=== PATIENT | female | born 1980 | race Caucasian/White ===

== ENCOUNTER 2023-04-07 10:03 | Outpatient (OUT) | payer BC, SELFPAY ==
--- NOTE | 2023-04-07 10:07 | MM_ITS ---
Patient Name: BRIANNA GRUBER MR#: [id number] : 1980 Exam Date: 04/07/2023 Ordering Doctor: DR Danitza Beck M.D. RADIOLOGY REPORT PROCEDURE: MM TOMOSYNTHESIS SCREENING BI COMPARISON: MG MAMM SCREEN 3D [facility] CAD, 01/18/2022. MG MAMM SCREEN 3D [facility] CAD, 11/12/2020. INDICATIONS: screening Calculator Name NCI Breast Cancer Risk Assessment Tool 5 Year Breast Cancer Risk 0.60% Lifetime Breast Cancer Risk 8.80% Personal Breast Cancer No Personal Ovarian Cancer No Treatments None Family Cancers None LOCATION: [facility] BREAST COMPOSITION: Scattered areas fibroglandular density. FINDINGS: DIAGNOSTIC CATEGORY 2--BENIGN FINDING: RIGHT BREAST: No significant suspicious finding. This exam includes additional mammographic views for implant evaluation and shows no visible implant abnormality. No significant change has occurred. LEFT BREAST: No significant suspicious finding. This exam includes additional mammographic views for implant evaluation and shows no visible implant abnormality. No significant change has occurred. RECOMMENDATIONS: ROUTINE MAMMOGRAM AND CLINICAL EVALUATION IN 12 MONTHS. PLEASE NOTE: A NORMAL MAMMOGRAM DOES NOT EXCLUDE THE POSSIBILITY OF BREAST CANCER. A CLINICALLY SUSPICIOUS PALPABLE LUMP SHOULD BE BIOPSIED. Dictated by: James Frost M.D. on 04/07/2023 at 15:29 Approved by: James Frost M.D. on 04/07/2023 at 15:31
== END 2023-04-07 10:04 | disposition home or self-care (01) ==
LOC: MAMMO 10:03
PROVIDERS: PCP Family Medicine; Visit Provider Family Medicine
DX: Z12.31 Encounter for screening mammogram for malignant neoplasm of breast (principal)
CPT/HCPCS: 77063; 77067

== ENCOUNTER 2024-06-05 22:05 | Outpatient (REF) | payer BC, SELFPAY ==
--- OUTSIDE RECORDS SUMMARY | 2024-06-05 22:08 | XMS_ITS | CCD ---
Author Organization [facility] Care Team Providers Care Carton Inspector Name Role Phone RAJAB, AMER Unavailable Unavailable SELF, SELF Unavailable Unavailable PULIDO, EDGARD Unavailable Unavailable PESAVENTO, HUMBLE Unavailable Unavailable SELF, SELF Unavailable Unavailable PULIDO, EDGARD Unavailable Unavailable RAJAB, AMER Unavailable Unavailable RAJAB, AMER Unavailable Unavailable PULIDO, EDGARD Unavailable Unavailable RAJAB, AMER Unavailable Unavailable PESAVENTO, HUMBLE Unavailable Unavailable PULIDO, EDGARD Unavailable Unavailable KARASIK, DR CLARK Admitting Unavailable PULIDO, DR EDGARD Shaikh Primary Care Unavailable KARASIK, DR CLARK Attending Unavailable KARASIK, DR CLARK Consulting Unavailable WEST, DR ANANTH Guerra Consulting Unavailable PULIDO, DR EDGARD Shaikh Primary Care Unavailable KARASIK, DR CLARK Attending Unavailable KARASIK, DR CLARK Consulting Unavailable KARASIK, DR CLARK Admitting Unavailable PULIDO, DR EDGARD Shaikh Attending Unavailable PULIDO, DR EDGARD Shaikh Consulting Unavailable PULIDO, DR EDGARD Shaikh Primary Care Unavailable PULIDO, DR EDGARD Shaikh Admitting Unavailable Thais Guadarrama Unavailable Medications Current Medications Medication Drug Class(es) Dates Sig (Normalized) Sig (Original) amoxicillin 875 mg / clavulanate 125 mg oral tablet (1 source) Penicillin-class Antibacterial Start: 04-01-2022 take 1 tablet by mouth every twelve hours Amoxicillin-Pot Clavulanate 875-125 MG 1 tablet Orally every 12 hrs for 10 day(s) Mar, Active Problems Active Problems Problem Classification Problem Date Documented Date Episodic/Chronic Immunizations and screening for infectious disease (1 source) Encounter for screening for human papillomavirus (HPV); Translations: [ENC SCREENING HUMAN PAPILLOMAVIRUS] Onset: 11-13-2021 Episodic Other screening for suspected conditions (not mental disorders or infectious disease) (8 sources) Encounter for screening mammogram for malignant neoplasm of breast; Translations: [Encounter for screening for malignant neoplasm of cervix] Onset: 11-10-2021 Episodic Other upper respiratory infections (1 source) Acute sinusitis, unspecified Episodic Unclassified (1 source) Kidney donor / Z52.4(ICD-10) Onset: 07-17-2017 Past or Other Problems Problem Classification Problem Date Documented Da te Episodic/Chronic Unclassified (1 source) Kidney donor; Translations: [Kidney donor] Onset: 07-17-2017 Unclassified (1 source) Cough, unspecified type R05.9 Results Test Name Value Interpretation Reference Range Facility Quick Fluon 04-01-2022 FLUAV Ab CF (S) [Titer] Negative QoL Meds Other FLUBV Ab CF (S) [Titer] Negative QoL Meds Other MG MAMM SCREEN 3D HALEY CADon 01-18-2022 MG MAMM SCREEN 3D HALEY CAD Patient: BRIANNA GRUBER Exam Date: 01/18/2022 : 1980 Gender:F Ordering : DR EDUARDO BRIDGES . Admission #: [id number] Family : Order #: [id number] CLICK HERE TO VIEW EXAM RADIOLOGY REPORT PROCEDURE: MAMMOGRAM SCREENING 3D BILATERAL CAD COMPARISON: MG MAMM SCREEN 3D HALEY CAD, 2020. INDICATIONS: Screening mammography Calculator Name NCI Breast Cancer Risk Assessment Tool 5 Year Breast Cancer Risk 0.60% Lifetime Breast Cancer Risk 8.90% Personal Breast Cancer No Personal Ovarian Cancer No Treatments None Family Cancers None LOCATION: [facility] BREAST COMPOSITION: Scattered areas fibroglandular density. FINDINGS: DIAGNOSTIC CATEGORY 1--NEGATIVE. NO CHANGE FROM COMPARISON ASSESSMENT. This exam includes additional mammographic views for implant evaluation and shows no visible implant abnormality. RIGHT BREAST: No significant suspicious finding. LEFT BREAST: No significant suspicious finding. RECOMMENDATIONS: ROUTINE MAMMOGRAM AND CLINICAL EVALUATION IN 12 MONTHS. PLEASE NOTE: A NORMAL MAMMOGRAM DOES NOT EXCLUDE THE POSSIBILITY OF BREAST CANCER. A CLINICALLY SUSPICIOUS PALPABLE LUMP SHOULD BE BIOPSIED. Dictated by: Ananth Sun MD on 01/19/2022 at 07:48 Approved by: Ananth Sun MD on 01/19/2022 at 07:50 Normal [facility] CBC AUTO DIFFon 12-02-2021 BASO # 0.0 103/ul Normal 0.0-0.1 [facility] Comment on above: Performed By: #### H FPFCBC #### [facility] [address] [place] [address] Dr. Duncan White Basophils/100 WBC (Bld) 0.7 % Normal 0.2-2.0 [facility] Comment on above: Performed By: #### H FPFCBC #### [facility] [address] [place] [address] Dr. Duncan White EO # 0.1 103/ul Normal 0.0-0.7 [facility] Comment on above: Performed By: #### H FPFCBC #### [facility] [address] [place] [address] Dr. Duncan White Eosinophils/100 WBC (Bld) 1.7 % Normal 0.9-7.0 [facility] Comment on above: Performed By: #### H FPFCBC #### [facility] [address] [place] [address] Dr. Duncan White Erythrocyte distribution width (RBC) [Ratio] 12.6 % Normal 11.0-15.0 [facility] Comment on above: Performed By: #### H FPFCBC #### [facility] [address] [place] [address] Dr. Duncan White Hematocrit (Bld) [Volume fraction] 37.7 % Normal 36.0-48.0 [facility] Comment on above: Performed By: #### H FPFCBC #### [facility] [address] [place] [address] Dr. Duncan White Hemoglobin (Bld) [Mass/Vol] 12.5 g/dL Normal 12.0-16.0 [facility] Comment on above: Performed By: #### H FPFCBC #### [facility] [address] [place] [address] Dr. Duncan White IG # 0.01 10e3/ul Normal 0.00-0.03 [facility] Comment on above: Performed By: #### H FPFCBC #### [facility] [address] [place] [address] Dr. Duncan White IG % 0.2 % Normal 0.0-0.5 [facility] Comment on above: Performed By: #### H FPFCBC #### [facility] [address] [place] [address] Dr. Duncan White LYMPH # 1.9 103/ul Normal 1.2-3.8 [facility] Comment on above: Performed By: #### H FPFCBC #### [facility] [address] [place] [address] Dr. Duncan White Lymphocytes/100 WBC (Bld) 46.6 % Normal 20.5-60.0 [facility] Comment on above: Performed By: #### H FPFCBC #### [facility] [address] [place] [address] Dr. Duncan White MCH (RBC) [Entitic mass] 29.4 pg Normal 26.7-34.0 [facility] Comment on above: Performed By: #### H FPFCBC #### [facility] [address] [place] [address] Dr. Duncan White MCHC (RBC) [Mass/Vol] 33.2 g/dL Normal 29.9-35.2 [facility] Comment on above: Performed By: #### H FPFCBC #### [facility] [address] [place] [address] Dr. Duncan White MCV (RBC) [Entitic vol] 88.7 fL Normal 81.0-99.0 [facility] Comment on above: Performed By: #### H FPFCBC #### [facility] [address] [place] [address] Dr. Duncan White MONO # 0.3 103/ul Normal 0.3-0.8 [facility] Comment on above: Performed By: #### H FPFCBC #### [facility] [address] [place] [address] Dr. Duncan White Monocytes/100 WBC (Bld) 8.0 % Normal 1.7-12.0 [facility] Comment on above: Performed By: #### H FPFCBC #### [facility] [address] [place] [address] Dr. Duncan White NEUT # 1.8 103/ul Normal 1.4-6.5 [facility] Comment on above: Performed By: #### H FPFCBC #### [facility] [address] [place] [address] Dr. Duncan White Neutrophils/100 WBC (Bld) 42.8 % Critically low 43.0-75.0 [facility] Comment on above: Performed By: #### H FPFCBC #### [facility] [address] [place] [address] Dr. Duncan White Platelet mean volume (Bld) [Entitic vol] 9.6 fL Normal 9.5-13.5 [facility] Comment on above: Performed By: #### H FPFCBC #### [facility] [address] [place] [address] Dr. Duncan White PLT 249 103/ul Normal 150-450 [facility] Comment on above: Performed By: #### H FPFCBC #### [facility] [address] [place] [address] Dr. Duncan White RBC 4.25 106/ul Normal 4.20-5.40 [facility] Comment on above: Performed By: #### H FPFCBC #### [facility] [address] [place] [address] Dr. Duncan White WBC 4.1 103/ul Normal 4.0-11.0 [facility] Comment on above: Performed By: #### H FPFCBC #### [facility] [address] [place] [address] Dr. Duncan White HEALTHFAIR PROFILEon 022 Albumin [Mass/Vol] 3.9 g/dL Normal 3.4-5.0 [facility] Comment on above: Performed By: #### H FPF #### [facility] [address] [place] [address] Dr. Duncan White Albumin/Globulin [Mass ratio] 1.3 {ratio} Normal [facility] Comment on above: Performed By: #### H FPF #### [facility] [address] [place] [address] Dr. Duncan White ALP [Catalytic activity/Vol] 51 U/L Normal 46-116 [facility] Comment on above: Performed By: #### H FPF #### [facility] [address] [place] [address] Dr. Duncan White ALT [Catalytic activity/Vol] 15 U/L Normal 14-59 [facility] Comment on above: Performed By: #### H FPF #### [facility] [address] [place] [address] Dr. Duncan White AST [Catalytic activity/Vol] 14 U/L Critically low 15-37 [facility] Comment on above: Performed By: #### H FPF #### [facility] [address] [place] [address] Dr. Duncan White Bilirubin [Mass/Vol] 1.2 mg/dL Critically high 0.2-1.0 [facility] Comment on above: Performed By: #### H FPF #### [facility] [address] [place] [address] Dr. Duncan White Calcium [Mass/Vol] 8.6 mg/dL Normal 8.5-10.1 [facility] Comment on above: Performed By: #### H FPF #### [facility] [address] [place] [address] Dr. Duncan White Chloride [Moles/Vol] 102 mmol/L Normal 98-107 [facility] Comment on above: Performed By: #### H FPF #### [facility] [address] [place] [address] Dr. Duncan White CHOL-HDL RATIO NORM SEE BELOW Normal [facility] Comment on above: Result Comment: 3.3 - 4.4 LOW RISK 4.4 - 7.1 AVERAGE RISK 7.1 - 11.0 MODERATE RISK >11.0 HIGH RISK Performed By: #### H FPF #### [facility] [address] [place] [address] Dr. Duncan White Cholesterol [Mass/Vol] 156 mg/dL Normal <=200 [facility] Comment on above: Performed By: #### H FPF #### [facility] [address] [address] [address] Duncan White Cholesterol in HDL [Mass/Vol] 72 mg/dL Critically high 40-60 [facility] Comment on above: Performed By: #### H FPF #### [facility] [address] [address] [address] Duncan White Cholesterol in LDL [Mass/Vol] 80.0 mg/dL Normal [facility] Comment on above: Performed By: #### H FPF #### [facility] [address] [address] [address] Duncan White Cholesterol.total/ Cholesterol in HDL [Mass ratio] 2.2 {ratio} Normal [facility] Comment on above: Performed By: #### H FPF #### [facility] [address] [place] [address] Dr. Duncan White CO2 [Moles/Vol] 27.1 mmol/L Normal 21.0-32.0 [facility] Comment on above: Performed By: #### H FPF #### [facility] [address] [address] [address] Duncan White Creatinine [Mass/Vol] 0.72 mg/dL Normal 0.55-1.02 [facility] Comment on above: Performed By: #### H FPF #### [facility] [address] [place] [address] Dr. Duncan White Globulin (S) [Mass/Vol] 3.1 g/dL Normal [facility] Comment on above: Performed By: #### H FPF #### [facility] [address] [address] [address] Duncan White Glucose [Mass/Vol] 90 mg/dL Normal 74-106 [facility] Comment on above: Performed By: #### H FPF #### [facility] [address] [address] [address] Duncan White HDL NORMAL > or = 60 mg/dl - LO W CARDIOVASCULAR RISK <40 mg/dl - HIGH CARDIOVASCULAR RISK Normal [facility] Comment on above: Performed By: #### H FPF #### [facility] [address] [address] [address] Duncan White LDL CALC NORMAL SEE BELOW Normal [facility] Comment on above: Result Comment: <100 mg/dl OPTIMAL 100 - 129 mg/dl NEAR OR ABOVE OPTIMAL 130 - 159 mg/dl BORDERLINE HIGH 160 - 189 mg/dl HIGH >190 mg/dl VERY HIGH Performed By: #### H FPF #### [facility] [address] [address] [address] Duncan White Potassium [Moles/Vol] 3.6 mmol/L Normal 3.5-5.1 [facility] Comment on above: Performed By: #### H FPF #### [facility] [address] [place] [address] Dr. Duncan White Protein [Mass/Vol] 7.0 g/dL Normal 6.4-8.2 [facility] Comment on above: Performed By: #### H FPF #### [facility] [address] [place] [address] Dr. Duncan White Sodium [Moles/Vol] 135 mmol/L Critically low 136-145 [facility] Comment on above: Performed By: #### H FPF #### [facility] [address] [place] [address] Dr. Duncan White Triglyceride [Mass/Vol] 20 mg/dL Normal <=150 [facility] Comment on above: Performed By: #### H FPF #### [facility] [address] [address] [address] Duncan White TSH 0.896 uIU/mL Normal 0.358-3.740 [facility] Comment on above: Performed By: #### H FPF #### [facility] [address] [place] [address] Dr. Duncan White Urea nitrogen [Mass/Vol] 14.0 mg/dL Normal 7.0-18.0 [facility] Comment on above: Performed By: #### H FPF #### [facility] [address] [place] [address] Dr. Duncan White Urea nitrogen/Creatinin e [Mass ratio] 19.4 mg/mg Normal [facility] Comment on above: Performed By: #### H FPF #### [facility] [address] [address] [address] Duncan White VLDL CALC 4.0 mg/dL Normal [facility] Comment on above: Performed By: #### H FPF #### [facility] [address] [address] [address] Duncan White PAP ACOG PANEL 2: 30 to 65on 11-15-[address] [facility] Comment on above: Result Comment: Perf ormed at: WB Performed By: #### [id number] #### [facility] [address] [address] [address] Duncan White Age Gdln ACOG Testing 30-65 [facility] Comment on above: Performed By: #### [id number] #### [facility] [address] [place] [address] Dr. Duncan White DIAGNOSIS: Comment Normal [facility] Comment on above: Result Comment: NEGA TIVE FOR INTRAEPITHELIAL LESION OR MALIGNANCY. Performed at: WB Performed By: #### [id number] #### [facility] [address] [address] [address] Duncan White HPV Aptima Negative Normal Negative [facility] Comment on above: Result Comment: This nucleic acid amplification test detects fourteen high-risk HPV types (16,18,31,33,35,39,45,51,52,56,58,59,66,68) without differentiation. Performed at: =G Performed By: #### [id number] #### [facility] [address] [place] [address] Dr. Duncan White Methodology: Comment Normal [facility] Comment on above: Result Comment: This liquid based ThinPrep(R) pap test was screened with the use of an image guided system. Performed at: WB Performed By: #### [id number] #### [facility] [address] [place] [address] Dr. Duncan White Note: Comment Normal [facility] Comment on above: Result Comment: The Pap smear is a screening test designed to aid in the detection of premalignant and malignant conditions of the uterine cervix. It is not a diagnostic procedure and should not be used as the sole means of detecting cervical cancer. Both false-positive and false-negative reports do occur. . Performed at: WB Performed By: #### [id number] #### [facility] [address] [place] [address] Dr. Duncan White Performed by: Comment Normal [facility] Comment on above: Result Comment: [place]ano Pena Active Directory Architect (ASCP) Performed at: WB Performed By: #### [id number] #### [facility] [address] [place] [address] Dr. Duncan White Specimen adequacy: Comment Normal [facility] Comment on above: Result Comment: Sati sfactory for evaluation. Endocervical and/or squamous metaplastic cells (endocervical component) are present. Performed at: WB Performed By: #### [id number] #### [facility] [address] [place] [address] Dr. Duncan White West Nile Virus, IgG and IgM on 07-21-2017 West Nile Virus Ab, IgG <1.30 Normal <1.30 [facility] Comment on above: Performed By: #### C BCDFC, PTPTT, ALB, CA, CHM7, ENZ4GB, HDLT, IPB, MGO, URICB, QHCGB, HBSAB, HBSAG, A1CB, HCAB, HIV, HBCBG, EBVG, SYPHG, CMVG ####[facility] [place] [facility] [address] [place] [address]#### YWNVP ####Reference lab information reported with result West Nile Virus Ab, IgM <0.90 Normal <0.90 [facility] Comment on above: Result Comment: (NOT E)Interpretive Criteria:IgG <1.30 Antibody not detected 1.30-1.49 Equivocal >=1.50 Antibody detectedIgM <0.90 Antibody not detected 0.90-1.10 Equivocal >1.10 Antibody detectedWest Nile virus (WNV) IgM is usually detectable inserum specimens from WNV-infected patients at the timeof clinical presentation. Because serum IgM antibodymay persist for more than a year in some patients, itspresence may indicate WNV infection in the previousyear and be unrelated to the current clinicalpresentation.West Nile IgG antibodies are often not detectable untilday 4 or 5 of illness. In a patient who is IgM positivebut IgG negative, a convalescent phase specimenobtained 7 to 14 days after the initial specimen shouldbe tested to document IgG seroconversion.Antibodies induced by other flavivirus infections (e.g.Dengue virus, Boone encephalitis virus) may showcross-reactivity with WNV.Test Performed by [facility],[address] [place] [id number] Davenport M.D., Ph.D., Director of [phone], CLIA [id number] sent to [facility] Performed By: #### C BCDFC, PTPTT, ALB, CA, CHM7, ENZ4GB, HDLT, IPB, MGO, URICB, QHCGB, HBSAB, HBSAG, A1CB, HCAB, HIV, HBCBG, EBVG, SYPHG, CMVG ####[facility] [address] [address] [address] [place] [address]#### YWNVP ####Reference lab information reported with result CT ANGIO [facility]IV[facility] KIDNEY DONOR on 07-19-2017 CT ANGIO [facility]IVING KIDNEY DONOR EXAM: CT ANGIO LIVING KIDNEY DONOR (CTA of the Abdomen), 07/17/2017 15:21 PMCLINICAL INDICATIONS: ORGAN DONOR; living kidney donor evaluation; RELEVANT CLINICAL HISTORY: Z52.4:Kidney donorCONTRAST:iohexol (OMNIPAQUE) 350 MG/ML injection 1-171 mL; Route of Administration:Intravenous; Dose: 70 mL. ---------This patient underwent a CT examination using radiation exposure as low asreasonably achievable. CTDIvol and DLP radiation exposure values for eachseries were:Exposure: 1; Series: 2; Anatomy: Abdomen; Phantom: 32 cm; CTDIvol: 2; DLP: 2Exposure: 2; Series: 3; Anatomy: Abdomen; Phantom: 32 cm; CTDIvol: 16; DLP: 16Exposure: 3; Series: 5; Anatomy: Abdomen; Phantom: 32 cm; CTDIvol: 5; DLP: 180Exposure: 4; Series: 8; Anatomy: Abdomen; Phantom: 32 cm; CTDIvol: 5; DLP: 176The dose indicators for CT are the volume Computed Tomography (CT) Dose Index(CTDIvol) and the Dose Length Product (DLP), and are measured in units of mGyand mGy-cm, respectively. These indicators are not patient dose, but valuesgenerated from the CT scanner acquisition factors and may substantiallyunderestimate or overestimate the absorbed dose based on patient size andother factors.COMPARISON: No prior studies available for comparison.TECHNIQUE: Submillimeter contiguous axial sections were taken from the dome ofthe diaphragm to the mid-iliac region during and following intravenousinjection of contrast. Both arterial and venous phases were obtained. Delayedimaging was also performed to the proximal femur to depict the renalcollection systems and ureters. Oral contrast was not used so as to optimizethe visualization of the vasculature. Additional multiplanar and 3Dreconstructions were provided.FINDINGS:Left Kidney:Normal size and enhancement. No focal renal lesions. No renal calculi orhydronephrosis. Extrarenal pelvis.Number of ureters: 1The kidney measures approximately D1: 114 mm D2: 63 mm x 39 mm. Volumetrically it measures 179 cm?.Left Renal Artery:Underlying renal artery disease: NoneNumber of renal arteries: 3Percentage of kidney supplied by renal artery(ies): 60/5/25Diameter of renal artery origin: 6.8 mm/1.6 mm/2.5 mmDistance from the main renal artery aortic origin to its first branching pointis 31 mm. First arterial branching point is located approximately 23 mm from the renalhilum. Left Renal Vein:Number of renal veins: 1Location of renal vein(s): Retroaortic.Right Kidney: Normal size and enhancement. No focal renal lesions. No renal calculi orhydronephrosis. Number of ureters: 1The kidney measures approximately D1: 105 mm D2: 59 mm x 41 mm. Volumetrically it measures 193 cm?.Right Renal Artery:Underlying renal artery disease: NoneNumber of renal arteries: 1Percentage of kidney supplied by renal artery(ies): 100Diameter of renal artery origin: 8.0 mmDistance from the main renal artery origin to its first branching point is 51 mm. First arterial branching point is located approximately 22 mm from the renalhilum. First arterial branching point is located approximately 9.7 mm from thelateral edge of the IVC.Right Renal Vein:Number of renal veins: 2Location of renal vein(s): AnatomicalDelayed Images: Unremarkable.Lung Bases: Clear. Liver: Normal size and attenuation. No focal lesions.Spleen: Normal size. No focal lesions.Additional findings: Partial visualization of an intrauterine device andbreast implants.IMPRESSION: 1. 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 Accessory right renal vein. I personally viewed and interpreted these images and I have reviewed andapproved this report. Normal [facility] CMV IgG Antibodyon 8 CMV IgG Antibody Positive Abnormal Negative [facility] Comment on above: Performed By: #### C BCDFC, PTPTT, ALB, CA, CHM7, ENZ4GB, HDLT, IPB, MGO, URICB, QHCGB, HBSAB, HBSAG, A1CB, HCAB, HIV, HBCBG, EBVG, SYPHG, CMVG ####[facility] [place], [place] [address] [address] [place] [address]#### YWNVP ####Reference lab information reported with result ALP,ALT,AST,LD,GGT,BILIon Alanine aminotransferase (ALT) 17 U/L Normal 9-48 [facility] Comment on above: Performed By: #### C BCDFC, PTPTT, ALB, CA, CHM7, ENZ4GB, HDLT, IPB, MGO, URICB, QHCGB, HBSAB, HBSAG, A1CB, HCAB, HIV, HBCBG, EBVG, SYPHG, CMVG ####[facility] [place], [place] [id number] [place] [address]#### YWNVP ####Reference lab information reported with result Alkaline phosphatase (ALP) 55 U/L Normal 32-126 [facility] Comment on above: Performed By: #### C BCDFC, PTPTT, ALB, CA, CHM7, ENZ4GB, HDLT, IPB, MGO, URICB, QHCGB, HBSAB, HBSAG, A1CB, HCAB, HIV, HBCBG, EBVG, SYPHG, CMVG ####[facility] [place], [place] [id number] [address] [place] [address]#### YWNVP ####Reference lab information reported with result Aspartate aminotransferase (AST) 17 U/L Normal 14-40 [facility] Comment on above: Performed By: #### C BCDFC, PTPTT, ALB, CA, CHM7, ENZ4GB, HDLT, IPB, MGO, URICB, QHCGB, HBSAB, HBSAG, A1CB, HCAB, HIV, HBCBG, EBVG, SYPHG, CMVG ####[facility] [place] [address] [place] [address]#### YWNVP ####Reference lab information reported with result Bilirubin (direct) 0.2 mg/dL Normal <0.3 [facility] Comment on above: Performed By: #### C BCDFC, PTPTT, ALB, CA, CHM7, ENZ4GB, HDLT, IPB, MGO, URICB, QHCGB, HBSAB, HBSAG, A1CB, HCAB, HIV, HBCBG, EBVG, SYPHG, CMVG ####[facility] [place], [place] [id number] [address] [place] [address]#### YWNVP ####Reference lab information reported with result Bilirubin (total) 0.6 mg/dL Normal <1.5 [facility] Comment on above: Performed By: #### C BCDFC, PTPTT, ALB, CA, CHM7, ENZ4GB, HDLT, IPB, MGO, URICB, QHCGB, HBSAB, HBSAG, A1CB, HCAB, HIV, HBCBG, EBVG, SYPHG, CMVG ####[facility] [place], [place] [id number] [address] [place] [address]#### YWNVP ####Reference lab information reported with result GGT 12 U/L Normal 8-64 [facility] Comment on above: Performed By: #### C BCDFC, PTPTT, ALB, CA, CHM7, ENZ4GB, HDLT, IPB, MGO, URICB, QHCGB, HBSAB, HBSAG, A1CB, HCAB, HIV, HBCBG, EBVG, SYPHG, CMVG ####[facility] [place], [place] [id number] [address] [place] [address]#### YWNVP ####Reference lab information reported with result LD Total 153 U/L Normal 100-190 [facility] Comment on above: Performed By: #### C BCDFC, PTPTT, ALB, CA, CHM7, ENZ4GB, HDLT, IPB, MGO, URICB, QHCGB, HBSAB, HBSAG, A1CB, HCAB, HIV, HBCBG, EBVG, SYPHG, CMVG ####[facility] [place] [address]#### YWNVP ####Reference lab information reported with result Albuminon 07-17-2017 Albumin 4.2 g/dL Normal 3.5-5.0 [facility] Comment on above: Performed By: #### C BCDFC, PTPTT, ALB, CA, CHM7, ENZ4GB, HDLT, IPB, MGO, URICB, QHCGB, HBSAB, HBSAG, A1CB, HCAB, HIV, HBCBG, EBVG, SYPHG, CMVG ####[place] [address] [place] [address]#### YWNVP ####Reference lab information reported with result CBC,PLATELET,DIFFERENTIAL - CCLon 07-17-2017 Abs Baso 0.03 K/uL Normal 0.01-0.08 [facility] Comment on above: Performed By: #### C BCDFC, PTPTT, ALB, CA, CHM7, ENZ4GB, HDLT, IPB, MGO, URICB, QHCGB, HBSAB, HBSAG, A1CB, HCAB, HIV, HBCBG, EBVG, SYPHG, CMVG ####[place] [address]#### YWNVP ####Reference lab information reported with result Abs Eos 0.04 K/uL Normal 0.04-0.36 [facility] Comment on above: Performed By: #### C BCDFC, PTPTT, ALB, CA, CHM7, ENZ4GB, HDLT, IPB, MGO, URICB, QHCGB, HBSAB, HBSAG, A1CB, HCAB, HIV, HBCBG, EBVG, SYPHG, CMVG ####[place] [address] [place], [place] [id number] [address] [place] [address]#### YWNVP ####Reference lab information reported with result Abs Rains 0.36 K/uL Normal 0.24-0.86 [facility] Comment on above: Performed By: #### C BCDFC, PTPTT, ALB, CA, CHM7, ENZ4GB, HDLT, IPB, MGO, URICB, QHCGB, HBSAB, HBSAG, A1CB, HCAB, HIV, HBCBG, EBVG, SYPHG, CMVG ####[facility] [place], [place] [id number] [address] [place] [address]#### YWNVP ####Reference lab information reported with result Basophils/100 WBC Auto (Bld) 0.7 % Normal [facility] Comment on above: Performed By: #### C BCDFC, PTPTT, ALB, CA, CHM7, ENZ4GB, HDLT, IPB, MGO, URICB, QHCGB, HBSAB, HBSAG, A1CB, HCAB, HIV, HBCBG, EBVG, SYPHG, CMVG ####[facility] [place], [place] [id number] [address] [place] [address]#### YWNVP ####Reference lab information reported with result DIFFERENTIAL TYPE Electronic Differential Normal [facility] Comment on above: Performed By: #### C BCDFC, PTPTT, ALB, CA, CHM7, ENZ4GB, HDLT, IPB, MGO, URICB, QHCGB, HBSAB, HBSAG, A1CB, HCAB, HIV, HBCBG, EBVG, SYPHG, CMVG ####[facility] [place], [place] [id number] [address] [place] [address]#### YWNVP ####Reference lab information reported with result Eosinophils/100 leukocytes 0.9 % Normal [facility] Comment on above: Performed By: #### C BCDFC, PTPTT, ALB, CA, CHM7, ENZ4GB, HDLT, IPB, MGO, URICB, QHCGB, HBSAB, HBSAG, A1CB, HCAB, HIV, HBCBG, EBVG, SYPHG, CMVG ####[facility] [place] [address]#### YWNVP ####Reference lab information reported with result Erythrocytes (RBC) 4.50 10*6/uL Normal 3.93-5.22 [facility] Comment on above: Performed By: #### C BCDFC, PTPTT, ALB, CA, CHM7, ENZ4GB, HDLT, IPB, MGO, URICB, QHCGB, HBSAB, HBSAG, A1CB, HCAB, HIV, HBCBG, EBVG, SYPHG, CMVG ####[facility] [place] [address]#### YWNVP ####Reference lab information reported with result Erythrocytes (RBC) 12.5 % Normal 11.7-14.4 [facility] Comment on above: Performed By: #### C BCDFC, PTPTT, ALB, CA, CHM7, ENZ4GB, HDLT, IPB, MGO, URICB, QHCGB, HBSAB, HBSAG, A1CB, HCAB, HIV, HBCBG, EBVG, SYPHG, CMVG ####[address] [place] [address]#### YWNVP ####Reference lab information reported with result Hematocrit (HCT) 40.1 % Normal 34.1-44.9 [facility] Comment on above: Performed By: #### C BCDFC, PTPTT, ALB, CA, CHM7, ENZ4GB, HDLT, IPB, MGO, URICB, QHCGB, HBSAB, HBSAG, A1CB, HCAB, HIV, HBCBG, EBVG, SYPHG, CMVG ####[facility] [place], [place] [id number] [address] [place] [address]#### YWNVP ####Reference lab information reported with result Hemoglobin mass conc (Bld) 32.9 g/dL Normal 32.2-35.5 [facility] Comment on above: Performed By: #### C BCDFC, PTPTT, ALB, CA, CHM7, ENZ4GB, HDLT, IPB, MGO, URICB, QHCGB, HBSAB, HBSAG, A1CB, HCAB, HIV, HBCBG, EBVG, SYPHG, CMVG ####[facility] [place], [place] [id number] [address] [place] [address]#### YWNVP ####Reference lab information reported with result Hemoglobin mass conc (Bld) 13.2 g/dL Normal 11.2-15.7 [facility] Comment on above: Performed By: #### C BCDFC, PTPTT, ALB, CA, CHM7, ENZ4GB, HDLT, IPB, MGO, URICB, QHCGB, HBSAB, HBSAG, A1CB, HCAB, HIV, HBCBG, EBVG, SYPHG, CMVG ####[facility] [place] [address] [place] [address]#### YWNVP ####Reference lab information reported with result Hemoglobin mass conc (Bld) 29.3 pg Normal 25.6-32.2 [facility] Comment on above: Performed By: #### C BCDFC, PTPTT, ALB, CA, CHM7, ENZ4GB, HDLT, IPB, MGO, URICB, QHCGB, HBSAB, HBSAG, A1CB, HCAB, HIV, HBCBG, EBVG, SYPHG, CMVG ####[facility] [place], [place] [id number] [address] [place] [address]#### YWNVP ####Reference lab information reported with result IMMATURE GRANS % 0.2 % Normal [facility] Comment on above: Performed By: #### C BCDFC, PTPTT, ALB, CA, CHM7, ENZ4GB, HDLT, IPB, MGO, URICB, QHCGB, HBSAB, HBSAG, A1CB, HCAB, HIV, HBCBG, EBVG, SYPHG, CMVG ####[facility] [place] [address] [place] [address]#### YWNVP ####Reference lab information reported with result IMMATURE GRANS ABSOLUTE 0.01 K/uL Normal 0.00-0.03 [facility] Comment on above: Performed By: #### C BCDFC, PTPTT, ALB, CA, CHM7, ENZ4GB, HDLT, IPB, MGO, URICB, QHCGB, HBSAB, HBSAG, A1CB, HCAB, HIV, HBCBG, EBVG, SYPHG, CMVG ####[place] [address] [place] [address] [place] [address]#### YWNVP ####Reference lab information reported with result Lymphocytes 1.91 10*3/uL Normal 1.18-3.74 [facility] Comment on above: Performed By: #### C BCDFC, PTPTT, ALB, CA, CHM7, ENZ4GB, HDLT, IPB, MGO, URICB, QHCGB, HBSAB, HBSAG, A1CB, HCAB, HIV, HBCBG, EBVG, SYPHG, CMVG ####[facility] [place], [place] [id number] [address] [place] [address]#### YWNVP ####Reference lab information reported with result Lymphocytes/100 leukocytes 41.8 % Normal [facility] Comment on above: Performed By: #### C BCDFC, PTPTT, ALB, CA, CHM7, ENZ4GB, HDLT, IPB, MGO, URICB, QHCGB, HBSAB, HBSAG, A1CB, HCAB, HIV, HBCBG, EBVG, SYPHG, CMVG ####[facility] [place], [place] [id number] [address] [place] [address]#### YWNVP ####Reference lab information reported with result MCV 89.1 fL Normal 79.4-94.8 [facility] Comment on above: Performed By: #### C BCDFC, PTPTT, ALB, CA, CHM7, ENZ4GB, HDLT, IPB, MGO, URICB, QHCGB, HBSAB, HBSAG, A1CB, HCAB, HIV, HBCBG, EBVG, SYPHG, CMVG ####[facility] [place], [place] [id number] [address] [place] [address]#### YWNVP ####Reference lab information reported with result Monocytes/100 leukocytes 7.9 % Normal [facility] Comment on above: Performed By: #### C BCDFC, PTPTT, ALB, CA, CHM7, ENZ4GB, HDLT, IPB, MGO, URICB, QHCGB, HBSAB, HBSAG, A1CB, HCAB, HIV, HBCBG, EBVG, SYPHG, CMVG ####[facility] [place], [place] [id number] [address] [place] [address]#### YWNVP ####Reference lab information reported with result NEUTROPHIL SEGMENTED 48.5 % Normal [facility] Comment on above: Performed By: #### C BCDFC, PTPTT, ALB, CA, CHM7, ENZ4GB, HDLT, IPB, MGO, URICB, QHCGB, HBSAB, HBSAG, A1CB, HCAB, HIV, HBCBG, EBVG, SYPHG, CMVG ####[facility] [place], [place] [id number] [address] [place] [address]#### YWNVP ####Reference lab information reported with result Nucleated erythrocytes 0.0 /100 WBC Normal 0.0-0.2 [facility] Comment on above: Performed By: #### C BCDFC, PTPTT, ALB, CA, CHM7, ENZ4GB, HDLT, IPB, MGO, URICB, QHCGB, HBSAB, HBSAG, A1CB, HCAB, HIV, HBCBG, EBVG, SYPHG, CMVG ####[facility] [place], [place] [id number] [address] [place] [address]#### YWNVP ####Reference lab information reported with result Platelet mean volume (PMV) 9.9 fL Normal 9.4-12.3 [facility] Comment on above: Performed By: #### C BCDFC, PTPTT, ALB, CA, CHM7, ENZ4GB, HDLT, IPB, MGO, URICB, QHCGB, HBSAB, HBSAG, A1CB, HCAB, HIV, HBCBG, EBVG, SYPHG, CMVG ####[facility] [place], [place] [id number] [address] [place] [address]#### YWNVP ####Reference lab information reported with result Platelets 230 10*3/uL Normal 182-369 [facility] Comment on above: Performed By: #### C BCDFC, PTPTT, ALB, CA, CHM7, ENZ4GB, HDLT, IPB, MGO, URICB, QHCGB, HBSAB, HBSAG, A1CB, HCAB, HIV, HBCBG, EBVG, SYPHG, CMVG ####[place] [address] [place] [address]#### YWNVP ####Reference lab information reported with result SEGS + Bands,Absolute 2.22 K/uL Normal 1.56-6.13 [facility] Comment on above: Performed By: #### C BCDFC, PTPTT, ALB, CA, CHM7, ENZ4GB, HDLT, IPB, MGO, URICB, QHCGB, HBSAB, HBSAG, A1CB, HCAB, HIV, HBCBG, EBVG, SYPHG, CMVG ####[place] [address] [place] [address]#### YWNVP ####Reference lab information reported with result WBC (Leukocytes) 4.57 10*3/uL Normal 3.98-10.04 [facility] Comment on above: Performed By: #### C BCDFC, PTPTT, ALB, CA, CHM7, ENZ4GB, HDLT, IPB, MGO, URICB, QHCGB, HBSAB, HBSAG, A1CB, HCAB, HIV, HBCBG, EBVG, SYPHG, CMVG ####[place] [address]#### YWNVP ####Reference lab information reported with result CHEM 7on 07-17-2017 Anion gap 13 mmol/L Normal 7-17 [facility] Comment on above: Performed By: #### C BCDFC, PTPTT, ALB, CA, CHM7, ENZ4GB, HDLT, IPB, MGO, URICB, QHCGB, HBSAB, HBSAG, A1CB, HCAB, HIV, HBCBG, EBVG, SYPHG, CMVG ####[facility] [place] [address]pw[facility] [place] [address]#### YWNVP ####Reference lab information reported with result BUN/Creatinine Ratio 22 mg/mg Normal [facility] Comment on above: Performed By: #### C BCDFC, PTPTT, ALB, CA, CHM7, ENZ4GB, HDLT, IPB, MGO, URICB, QHCGB, HBSAB, HBSAG, A1CB, HCAB, HIV, HBCBG, EBVG, SYPHG, CMVG ####[facility] [place], [place] [id number] [address] [place] [address]#### YWNVP ####Reference lab information reported with result Chloride 108 mmol/L Normal 98-108 [facility] Comment on above: Performed By: #### C BCDFC, PTPTT, ALB, CA, CHM7, ENZ4GB, HDLT, IPB, MGO, URICB, QHCGB, HBSAB, HBSAG, A1CB, HCAB, HIV, HBCBG, EBVG, SYPHG, CMVG ####[facility] [place] [address] [place] [address]#### YWNVP ####Reference lab information reported with result CO2 24 mmol/L Normal 22-30 [facility] Comment on above: Performed By: #### C BCDFC, PTPTT, ALB, CA, CHM7, ENZ4GB, HDLT, IPB, MGO, URICB, QHCGB, HBSAB, HBSAG, A1CB, HCAB, HIV, HBCBG, EBVG, SYPHG, CMVG ####[facility] [place] [id number] [place], [place] [id number] [address] [place] [address]#### YWNVP ####Reference lab information reported with result Creatinine 0.69 mg/dL Normal 0.50-1.20 [facility] Comment on above: Performed By: #### C BCDFC, PTPTT, ALB, CA, CHM7, ENZ4GB, HDLT, IPB, MGO, URICB, QHCGB, HBSAB, HBSAG, A1CB, HCAB, HIV, HBCBG, EBVG, SYPHG, CMVG ####[facility] [place], [place] [id number] [address] [place] [address]#### YWNVP ####Reference lab information reported with result eGFR (non-black) mL/min/{1.73_m2} Normal >60 [facility] Comment on above: Performed By: #### C BCDFC, PTPTT, ALB, CA, CHM7, ENZ4GB, HDLT, IPB, MGO, URICB, QHCGB, HBSAB, HBSAG, A1CB, HCAB, HIV, HBCBG, EBVG, SYPHG, CMVG ####[facility] [place], [place] [id number] [address] [place] [address]#### YWNVP ####Reference lab information reported with result Glucose mass conc 84 mg/dL Normal 70-99 [facility] Comment on above: Performed By: #### C BCDFC, PTPTT, ALB, CA, CHM7, ENZ4GB, HDLT, IPB, MGO, URICB, QHCGB, HBSAB, HBSAG, A1CB, HCAB, HIV, HBCBG, EBVG, SYPHG, CMVG ####[facility] [place], [place] [id number] [place] [address]#### YWNVP ####Reference lab information reported with result Osmolality 294 mOsm/kg Normal 278-305 [facility] Comment on above: Performed By: #### C BCDFC, PTPTT, ALB, CA, CHM7, ENZ4GB, HDLT, IPB, MGO, URICB, QHCGB, HBSAB, HBSAG, A1CB, HCAB, HIV, HBCBG, EBVG, SYPHG, CMVG ####[facility] [place], [place] [id number] [address] [place] [address]#### YWNVP ####Reference lab information reported with result Potassium molar conc 3.8 mmol/L Normal 3.5-5.0 [facility] Comment on above: Performed By: #### C BCDFC, PTPTT, ALB, CA, CHM7, ENZ4GB, HDLT, IPB, MGO, URICB, QHCGB, HBSAB, HBSAG, A1CB, HCAB, HIV, HBCBG, EBVG, SYPHG, CMVG ####[facility] [place] [address]#### YWNVP ####Reference lab information reported with result Sodium 141 mmol/L Normal 133-143 [facility] Comment on above: Performed By: #### C BCDFC, PTPTT, ALB, CA, CHM7, ENZ4GB, HDLT, IPB, MGO, URICB, QHCGB, HBSAB, HBSAG, A1CB, HCAB, HIV, HBCBG, EBVG, SYPHG, CMVG ####[facility] [place] [address] [place] [address]#### YWNVP ####Reference lab information reported with result Urea nitrogen 15 mg/dL Normal 7-22 [facility] Comment on above: Performed By: #### C BCDFC, PTPTT, ALB, CA, CHM7, ENZ4GB, HDLT, IPB, MGO, URICB, QHCGB, HBSAB, HBSAG, A1CB, HCAB, HIV, HBCBG, EBVG, SYPHG, CMVG ####[facility] [place] [address]#### YWNVP ####Reference lab information reported with result Calciumon 07-17-2017 Calcium 9.2 mg/dL Normal 8.6-10.5 [facility] Comment on above: Performed By: #### C BCDFC, PTPTT, ALB, CA, CHM7, ENZ4GB, HDLT, IPB, MGO, URICB, QHCGB, HBSAB, HBSAG, A1CB, HCAB, HIV, HBCBG, EBVG, SYPHG, CMVG ####[facility] [place] [address]#### YWNVP ####Reference lab information reported with result EBV VCA IgG Antibodyon 07-17 EBV VCA IgG Antibody Positive Abnormal Negative [facility] Comment on above: Performed By: #### C BCDFC, PTPTT, ALB, CA, CHM7, ENZ4GB, HDLT, IPB, MGO, URICB, QHCGB, HBSAB, HBSAG, A1CB, HCAB, HIV, HBCBG, EBVG, SYPHG, CMVG ####[facility] [place] [address]#### YWNVP ####Reference lab information reported with result HIV-1/HIV-2 AB with p24 Anti genon 07-17-2017 HIV-1/HIV-2 AB with p24 Antige NONREACTIVE Normal NONREACTIVE [facility] Comment on above: Performed By: #### C BCDFC, PTPTT, ALB, CA, CHM7, ENZ4GB, HDLT, IPB, MGO, URICB, QHCGB, HBSAB, HBSAG, A1CB, HCAB, HIV, HBCBG, EBVG, SYPHG, CMVG ####[facility] [place] [address]#### YWNVP ####Reference lab information reported with result Hemoglobin A1con 07-17-2017 Glucose mass conc 97 mg/dL Normal [facility] Comment on above: Performed By: #### C BCDFC, PTPTT, ALB, CA, CHM7, ENZ4GB, HDLT, IPB, MGO, URICB, QHCGB, HBSAB, HBSAG, A1CB, HCAB, HIV, HBCBG, EBVG, SYPHG, CMVG ####[place] [address] [place] [address]#### YWNVP ####Reference lab information reported with result Hemoglobin A1c/Hemoglobin.tot al mass fraction (Bld) 5.0 % Normal 4.7-5.6 [facility] Comment on above: Performed By: #### C BCDFC, PTPTT, ALB, CA, CHM7, ENZ4GB, HDLT, IPB, MGO, URICB, QHCGB, HBSAB, HBSAG, A1CB, HCAB, HIV, HBCBG, EBVG, SYPHG, CMVG ####[place] [address]#### YWNVP ####Reference lab information reported with result Hep B Core Ab,Total (IgG+IgM )on 07-17-2017 Hep B Core Ab,Total (IgG+IgM) Negative Normal Negative [facility] Comment on above: Performed By: #### C BCDFC, PTPTT, ALB, CA, CHM7, ENZ4GB, HDLT, IPB, MGO, URICB, QHCGB, HBSAB, HBSAG, A1CB, HCAB, HIV, HBCBG, EBVG, SYPHG, CMVG ####[facility] [place] [address]#### YWNVP ####Reference lab information reported with result Hep B Surface Abon 8 Hep B Surface Ab Positive Normal [facility] Comment on above: Performed By: #### C BCDFC, PTPTT, ALB, CA, CHM7, ENZ4GB, HDLT, IPB, MGO, URICB, QHCGB, HBSAB, HBSAG, A1CB, HCAB, HIV, HBCBG, EBVG, SYPHG, CMVG ####[facility] [place] [address]#### YWNVP ####Reference lab information reported with result Hep B Surface Agon 8 Hep B Surface Ag Negative Normal Negative [facility] Comment on above: Performed By: #### C BCDFC, PTPTT, ALB, CA, CHM7, ENZ4GB, HDLT, IPB, MGO, URICB, QHCGB, HBSAB, HBSAG, A1CB, HCAB, HIV, HBCBG, EBVG, SYPHG, CMVG ####[place] [address] [place] [address]#### YWNVP ####Reference lab information reported with result Hepatitis C Antibodyon 07-17 Hepatitis C Antibody Negative Normal Negative [facility] Comment on above: Performed By: #### C BCDFC, PTPTT, ALB, CA, CHM7, ENZ4GB, HDLT, IPB, MGO, URICB, QHCGB, HBSAB, HBSAG, A1CB, HCAB, HIV, HBCBG, EBVG, SYPHG, CMVG ####[facility] [place] [address]#### YWNVP ####Reference lab information reported with result Inorganic Phosphateon 2017 Inorg Phosphate 2.6 mg/dL Normal 2.2-4.6 [facility] Comment on above: Performed By: #### C BCDFC, PTPTT, ALB, CA, CHM7, ENZ4GB, HDLT, IPB, MGO, URICB, QHCGB, HBSAB, HBSAG, A1CB, HCAB, HIV, HBCBG, EBVG, SYPHG, CMVG ####[place] [address] [place] [address]#### YWNVP ####Reference lab information reported with result Lipid Profileon 07-17-2017 Calculated LDL Cholesterol 65 mg/dL Normal 0-99 [facility] Comment on above: Result Comment: [<10 0 mg/dL: Optimal] [100-129 mg/dL: Near Optimal] [130-159 mg/dL: Borderline High] [160-189 mg/dL: High] [>189 mg/dL: Very High] Performed By: #### C BCDFC, PTPTT, ALB, CA, CHM7, ENZ4GB, HDLT, IPB, MGO, URICB, QHCGB, HBSAB, HBSAG, A1CB, HCAB, HIV, HBCBG, EBVG, SYPHG, CMVG ####[facility] [place] [address]#### YWNVP ####Reference lab information reported with result Cholesterol 140 mg/dL Normal <200 [facility] Comment on above: Result Comment: [<20 0 mg/dL: Desirable] [200-239 mg/dL: Borderline High] [>239 mg/dL: High] Performed By: #### C BCDFC, PTPTT, ALB, CA, CHM7, ENZ4GB, HDLT, IPB, MGO, URICB, QHCGB, HBSAB, HBSAG, A1CB, HCAB, HIV, HBCBG, EBVG, SYPHG, CMVG ####[facility] [place] [address]#### YWNVP ####Reference lab information reported with result Cholesterol to HDL Ratio 2.2 {ratio} Normal <4.5 [facility] Comment on above: Result Comment: [<4. 5: Low risk] Performed By: #### C BCDFC, PTPTT, ALB, CA, CHM7, ENZ4GB, HDLT, IPB, MGO, URICB, QHCGB, HBSAB, HBSAG, A1CB, HCAB, HIV, HBCBG, EBVG, SYPHG, CMVG ####[place] [address] [place] [address]#### YWNVP ####Reference lab information reported with result HDL Cholesterol 65 mg/dL Normal >40.0 [facility] Comment on above: Result Comment: [<40 mg/dL: Low (High Risk)] [>59 mg/dL: High (Low Risk)] Performed By: #### C BCDFC, PTPTT, ALB, CA, CHM7, ENZ4GB, HDLT, IPB, MGO, URICB, QHCGB, HBSAB, HBSAG, A1CB, HCAB, HIV, HBCBG, EBVG, SYPHG, CMVG ####[place] [address] [place] [address]#### YWNVP ####Reference lab information reported with result Non HDL Cholesterol 75 mg/dL Normal <130 [facility] Comment on above: Performed By: #### C BCDFC, PTPTT, ALB, CA, CHM7, ENZ4GB, HDLT, IPB, MGO, URICB, QHCGB, HBSAB, HBSAG, A1CB, HCAB, HIV, HBCBG, EBVG, SYPHG, CMVG ####[facility] [place] [address] [place] [address]#### YWNVP ####Reference lab information reported with result Triglyceride 49 mg/dL Normal <150 [facility] Comment on above: Result Comment: [<15 0 mg/dL: Desirable][150-199 mg/dL: Borderline][200-499 mg/dL: High][>500 mg/dL: Very High] Performed By: #### C BCDFC, PTPTT, ALB, CA, CHM7, ENZ4GB, HDLT, IPB, MGO, URICB, QHCGB, HBSAB, HBSAG, A1CB, HCAB, HIV, HBCBG, EBVG, SYPHG, CMVG ####[facility] [place] [address]#### YWNVP ####Reference lab information reported with result Magnesiumon 07-17-2017 Magnesium 1.9 mg/dL Normal 1.6-2.6 [facility] Comment on above: Performed By: #### C BCDFC, PTPTT, ALB, CA, CHM7, ENZ4GB, HDLT, IPB, MGO, URICB, QHCGB, HBSAB, HBSAG, A1CB, HCAB, HIV, HBCBG, EBVG, SYPHG, CMVG ####[place] [address] [place] [address]#### YWNVP ####Reference lab information reported with result Microalbumin randomon 2017 *Microalbumin <7.0 Normal [facility] Comment on above: Performed By: #### C BCDFC, PTPTT, ALB, CA, CHM7, ENZ4GB, HDLT, IPB, MGO, URICB, QHCGB, HBSAB, HBSAG, A1CB, HCAB, HIV, HBCBG, EBVG, SYPHG, CMVG ####[facility] [place] [address]#### YWNVP ####Reference lab information reported with result *Microalbumin/Crea tinine Ratio Not calculated Normal <30 [facility] Comment on above: Performed By: #### C BCDFC, PTPTT, ALB, CA, CHM7, ENZ4GB, HDLT, IPB, MGO, URICB, QHCGB, HBSAB, HBSAG, A1CB, HCAB, HIV, HBCBG, EBVG, SYPHG, CMVG ####[facility] [place] [address]#### YWNVP ####Reference lab information reported with result Creatinine, urine mg/dL 21.00 mg/dL Normal [facility] Comment on above: Performed By: #### C BCDFC, PTPTT, ALB, CA, CHM7, ENZ4GB, HDLT, IPB, MGO, URICB, QHCGB, HBSAB, HBSAG, A1CB, HCAB, HIV, HBCBG, EBVG, SYPHG, CMVG ####[place] [address]#### YWNVP ####Reference lab information reported with result PT*PTTon 07-17-2017 INR Coag RelTime (PPP) 1.0 {INR} Normal 0.9-1.1 [facility] Comment on above: Performed By: #### C BCDFC, PTPTT, ALB, CA, CHM7, ENZ4GB, HDLT, IPB, MGO, URICB, QHCGB, HBSAB, HBSAG, A1CB, HCAB, HIV, HBCBG, EBVG, SYPHG, CMVG ####[facility] [place], [place] [id number] [place] [address]#### YWNVP ####Reference lab information reported with result Prothrombin time (PT) Coag time (PPP) 13.2 s Normal 11.9-14.2 [facility] Comment on above: Performed By: #### C BCDFC, PTPTT, ALB, CA, CHM7, ENZ4GB, HDLT, IPB, MGO, URICB, QHCGB, HBSAB, HBSAG, A1CB, HCAB, HIV, HBCBG, EBVG, SYPHG, CMVG ####[facility] [place], [place] [id number] [place] [address]#### YWNVP ####Reference lab information reported with result aPTT 27.1 s Normal 24.0-34.3 [facility] Comment on above: Performed By: #### C BCDFC, PTPTT, ALB, CA, CHM7, ENZ4GB, HDLT, IPB, MGO, URICB, QHCGB, HBSAB, HBSAG, A1CB, HCAB, HIV, HBCBG, EBVG, SYPHG, CMVG ####[facility] [place] [address] [place] [address]#### YWNVP ####Reference lab information reported with result Quant Beta HCG (Preg), serum on 07-17-2017 Quant Beta HCG (),ser <2 Normal [facility] Comment on above: Result Comment: Non- : <10 mIU/mLPostmenopause: <10 mIU/mLMale: <10 mIU/mLFEMALE GESTATIONAL AGE2-4 Weeks: 39.1-8,388 mIU/mL5-6 Weeks: 861-88,769 mIU/mL6-8 Weeks: 8,636-218,085 mIU/mL8-10 Weeks: 18,700-244,467 mIU/mL10-12 Weeks: 23,143-181,899 mIU/mL13-27 Weeks: 6,303-97,171 mIU/mL24-40 Weeks: 4,360-74,883 mIU/mLTest results cannot be interpreted as absolute evidence for the presence or absence of malignant disease. Performed By: #### C BCDFC, PTPTT, ALB, CA, CHM7, ENZ4GB, HDLT, IPB, MGO, URICB, QHCGB, HBSAB, HBSAG, A1CB, HCAB, HIV, HBCBG, EBVG, SYPHG, CMVG ####[place] [address]#### YWNVP ####Reference lab information reported with result Syphilis IgG AB with Reflex RPRon 07-17-2017 Syphilis IgG AB with Reflex RP Negative Normal Negative [facility] Comment on above: Performed By: #### C BCDFC, PTPTT, ALB, CA, CHM7, ENZ4GB, HDLT, IPB, MGO, URICB, QHCGB, HBSAB, HBSAG, A1CB, HCAB, HIV, HBCBG, EBVG, SYPHG, CMVG ####[place] [address]#### YWNVP ####Reference lab information reported with result Type and Screen - OPon 07-17 Type and Screen - OP Negative Normal [facility] Comment on above: Performed By: #### C BCDFC, PTPTT, ALB, CA, CHM7, ENZ4GB, HDLT, IPB, MGO, URICB, QHCGB, HBSAB, HBSAG, A1CB, HCAB, HIV, HBCBG, EBVG, SYPHG, CMVG ####[facility] [place] [address]#### YWNVP ####Reference lab information reported with result URIC ACIDon 07-17-2017 Urate 2.7 mg/dL Low 2.8-6.0 [facility] Comment on above: Performed By: #### C BCDFC, PTPTT, ALB, CA, CHM7, ENZ4GB, HDLT, IPB, MGO, URICB, QHCGB, HBSAB, HBSAG, A1CB, HCAB, HIV, HBCBG, EBVG, SYPHG, CMVG ####[facility] [place] [address]#### YWNVP ####Reference lab information reported with result Urinalysison 07-17-2017 Blood Urine Negative Normal Negative [facility] Comment on above: Performed By: #### C BCDFC, PTPTT, ALB, CA, CHM7, ENZ4GB, HDLT, IPB, MGO, URICB, QHCGB, HBSAB, HBSAG, A1CB, HCAB, HIV, HBCBG, EBVG, SYPHG, CMVG ####[place] [address] [place] [address]#### YWNVP ####Reference lab information reported with result COMMENT URINE None Normal [facility] Comment on above: Performed By: #### C BCDFC, PTPTT, ALB, CA, CHM7, ENZ4GB, HDLT, IPB, MGO, URICB, QHCGB, HBSAB, HBSAG, A1CB, HCAB, HIV, HBCBG, EBVG, SYPHG, CMVG ####[facility] [place], [place] [id number] [place] [address]#### YWNVP ####Reference lab information reported with result Nitrites Urine Negative Normal Negative [facility] Comment on above: Performed By: #### C BCDFC, PTPTT, ALB, CA, CHM7, ENZ4GB, HDLT, IPB, MGO, URICB, QHCGB, HBSAB, HBSAG, A1CB, HCAB, HIV, HBCBG, EBVG, SYPHG, CMVG ####[facility] [place], [place] [id number] [place] [address]#### YWNVP ####Reference lab information reported with result Protein Urine Negative Normal Negative [facility] Comment on above: Performed By: #### C BCDFC, PTPTT, ALB, CA, CHM7, ENZ4GB, HDLT, IPB, MGO, URICB, QHCGB, HBSAB, HBSAG, A1CB, HCAB, HIV, HBCBG, EBVG, SYPHG, CMVG ####[facility] [place], [place] [id number] [place] [address]#### YWNVP ####Reference lab information reported with result Specific [place] urine 1.008 Normal 1.001-1.035 [facility] Comment on above: Performed By: #### C BCDFC, PTPTT, ALB, CA, CHM7, ENZ4GB, HDLT, IPB, MGO, URICB, QHCGB, HBSAB, HBSAG, A1CB, HCAB, HIV, HBCBG, EBVG, SYPHG, CMVG ####[facility] [place], [place] [address] [address] [place] [address]#### YWNVP ####Reference lab information reported with result Squamous Epithelial Absent Normal [facility] Comment on above: Performed By: #### C BCDFC, PTPTT, ALB, CA, CHM7, ENZ4GB, HDLT, IPB, MGO, URICB, QHCGB, HBSAB, HBSAG, A1CB, HCAB, HIV, HBCBG, EBVG, SYPHG, CMVG ####[facility] [place], [place] [id number] [place] [address]#### YWNVP ####Reference lab information reported with result Urine, appearance Clear Normal Clear [facility] Comment on above: Performed By: #### C BCDFC, PTPTT, ALB, CA, CHM7, ENZ4GB, HDLT, IPB, MGO, URICB, QHCGB, HBSAB, HBSAG, A1CB, HCAB, HIV, HBCBG, EBVG, SYPHG, CMVG ####[facility] [place], [place] [id number] [place] [address]#### YWNVP ####Reference lab information reported with result Urine, bacteria in sediment Absent Normal Absent [facility] Comment on above: Performed By: #### C BCDFC, PTPTT, ALB, CA, CHM7, ENZ4GB, HDLT, IPB, MGO, URICB, QHCGB, HBSAB, HBSAG, A1CB, HCAB, HIV, HBCBG, EBVG, SYPHG, CMVG ####[facility] [place], [place] [id number] [place] [address]#### YWNVP ####Reference lab information reported with result Urine, color Yellow Normal YEL,DKYEL [facility] Comment on above: Performed By: #### C BCDFC, PTPTT, ALB, CA, CHM7, ENZ4GB, HDLT, IPB, MGO, URICB, QHCGB, HBSAB, HBSAG, A1CB, HCAB, HIV, HBCBG, EBVG, SYPHG, CMVG ####[facility] [place] [address] [place], [place] [id number] [place] [address]#### YWNVP ####Reference lab information reported with result Urine, erythrocytes in sediment by area 0-2 Normal 0-2 [facility] Comment on above: Performed By: #### C BCDFC, PTPTT, ALB, CA, CHM7, ENZ4GB, HDLT, IPB, MGO, URICB, QHCGB, HBSAB, HBSAG, A1CB, HCAB, HIV, HBCBG, EBVG, SYPHG, CMVG ####[facility] [place] [address] [place] [address]#### YWNVP ####Reference lab information reported with result Urine, glucose presence Negative Normal Negative [facility] Comment on above: Performed By: #### C BCDFC, PTPTT, ALB, CA, CHM7, ENZ4GB, HDLT, IPB, MGO, URICB, QHCGB, HBSAB, HBSAG, A1CB, HCAB, HIV, HBCBG, EBVG, SYPHG, CMVG ####[facility] [place] [address] [place] [address]#### YWNVP ####Reference lab information reported with result Urine, ketones presence Negative Normal Negative [facility] Comment on above: Performed By: #### C BCDFC, PTPTT, ALB, CA, CHM7, ENZ4GB, HDLT, IPB, MGO, URICB, QHCGB, HBSAB, HBSAG, A1CB, HCAB, HIV, HBCBG, EBVG, SYPHG, CMVG ####[facility] [address] [place] [address]AnaombSt. Mary'S Medical Center[address] [place] [address]#### YWNVP ####Reference lab information reported with result Urine, leukocyte esterase presence Negative Normal Negative [facility] Comment on above: Performed By: #### C BCDFC, PTPTT, ALB, CA, CHM7, ENZ4GB, HDLT, IPB, MGO, URICB, QHCGB, HBSAB, HBSAG, A1CB, HCAB, HIV, HBCBG, EBVG, SYPHG, CMVG ####[facility] [place], [place] [id number] [address] [place] [address]#### YWNVP ####Reference lab information reported with result Urine, leukocytes in sedmiment 0-5 Normal 0-5 [facility] Comment on above: Performed By: #### C BCDFC, PTPTT, ALB, CA, CHM7, ENZ4GB, HDLT, IPB, MGO, URICB, QHCGB, HBSAB, HBSAG, A1CB, HCAB, HIV, HBCBG, EBVG, SYPHG, CMVG ####[facility] [place] [address] [place], [place] [id number] [place] [address]#### YWNVP ####Reference lab information reported with result Urine, pH 6.5 [pH] Normal 5.0-7.0 [facility] Comment on above: Performed By: #### C BCDFC, PTPTT, ALB, CA, CHM7, ENZ4GB, HDLT, IPB, MGO, URICB, QHCGB, HBSAB, HBSAG, A1CB, HCAB, HIV, HBCBG, EBVG, SYPHG, CMVG ####[facility] [place] [address] 16876ObsdyeSt. Mary'S Medical Center[address] [place] [address]#### YWNVP ####Reference lab information reported with result Urobilinogen urine 0.2 EU/dL Normal <2.0 [facility] Comment on above: Performed By: #### C BCDFC, PTPTT, ALB, CA, CHM7, ENZ4GB, HDLT, IPB, MGO, URICB, QHCGB, HBSAB, HBSAG, A1CB, HCAB, HIV, HBCBG, EBVG, SYPHG, CMVG ####[facility] [place], [place] [address]NxaozgSt. Mary'S Medical Center[address] [place] [address]#### YWNVP ####Reference lab information reported with result XR CHEST PA AND LATERALon XR CHEST PA AND LATERAL EXAM: XR CHEST PA AND LATERAL, 07/17/2017 14:12 PMCOMPARISON: No prior studies available for comparison.CLINICAL INDICATIONS: living kidney donor evaluationRELEVANT CLINICAL HISTORY: Z52.4:Kidney donorFINDINGS: (Adequate technique)Implanted Devices: None Chest Wall: NormalHila: NormalMediastinum: NormalPleural Spaces: No pleural effusion. No pneumothorax.Lungs: Clear, without mass, interstitial disease, or consolidation.Cardiac Silhouette: Normal, without overall or specific chamber enlargement,or abnormal calcification Thoracic Aorta: Normal Pulmonary Vessels: Normal, without PVHIMPRESSION:No acute cardiopulmonary disease Normal [facility] HLA TYPINGon 05-31-2017 *COMMENT: Normal [facility] Comment on above: Result Comment: Test ing performed by SSOP (sequence specific oligonucleotide probe methodology). Additional testing may be performed by SSP (sequence specific primer), and or SBT ( sequence based Typing) methodologies.Some of the reagents used for testing in the Clinical Histocompatibility Laboratory have yet to be approved by the FDA. Our certification by CLIA to perform high complexity tests allows us to use these reagents in the context of a stringent QC program, and obviates the need for FDA approval.Testing performed by the [facility] Clinical Histocompatibility Laboratory. [facility] number: [id number] CLIA number: [id number], Director: Caleb Torres, PhD, D([facility]). Performed By: #### H LAB ####[facility] [facility] [address]RqaiuySt. Mary'S Medical Center[address] [place] [address] Bw4 Negative Normal [facility] Comment on above: Performed By: #### H LAB ####[facility] [place] [address], [place] [address]UtkpwrSt. Mary'S Medical Center[address] [place] [address] Bw6 Positive [facility] Comment on above: Performed By: #### H LAB ####[facility] [place], [place] [address]QysogiSt. Mary'S Medical Center[address] [place] [address] DPB1* 04:01 Normal [facility] Comment on above: Performed By: #### H LAB ####[facility] [place] [address] 111[address]OplllxSt. Mary'S Medical Center[address] [place] [address]197 DPB1* 01:01 [facility] Comment on above: Performed By: #### H LAB ####[facility] [place] [address], [place] [address]IytkysSt. Mary'S Medical Center[address] [place] [address] DQA1* xxx Normal [facility] Comment on above: Performed By: #### H LAB ####[facility] [place] [address] 14[address]HdauxsSt. Mary'S Medical Center[address] [place] [address]116 DQA1* 05 Normal [facility] Comment on above: Performed By: #### H LAB ####[facility] [facility] [address]JgsuiwSt. Mary'S Medical Center[address] [place] [address] DQB1 2 Normal [facility] Comment on above: Performed By: #### H LAB ####[facility] [place] [address], [place] [address]TgvwqzSt. Mary'S Medical Center[address] [place] [address] DQB1* xxx Normal [facility] Comment on above: Performed By: #### H LAB ####[facility] [place] [address] 9[address]VszsmdSt. Mary'S Medical Center[address] [place] [address] DQB1* 02 Normal [facility] Comment on above: Performed By: #### H LAB ####[facility] [place], [place] [address]WimkynSt. Mary'S Medical Center[address] [place] [address] [facility] Comment on above: Performed By: #### H LAB ####[facility] [place], [place] [address]OrlcquSt. Mary'S Medical Center[address] [place] [address]171 DR51 Negative Normal [facility] Comment on above: Performed By: #### H LAB ####[facility] [place] [address] 83538GkwqcgSt. Mary'S Medical Center[address] [place] [address]8547 DR52 Positive Normal [facility] Comment on above: Performed By: #### H LAB ####[facility] [place] [address], [place] [address]PdzvbjSt. Mary'S Medical Center[address] [place] [address] 44990 DR53 Negative Normal [facility] Comment on above: Performed By: #### H LAB ####[facility] [place], [place] [address]HhzgrrSt. Mary'S Medical Center[address] [place] [address] 45462 DRB1* 03 Normal [facility] Comment on above: Performed By: #### H LAB ####[facility] [place] [address] 21320SstftySt. Mary'S Medical Center[address] [place] [address] 44521 DRB1* xxx Normal [facility] Comment on above: Performed By: #### H LAB ####[facility] [place] [address]PzqmvpSt. Mary'S Medical Center[address] [place] [address] 31843 DRB3* 01 Normal [facility] Comment on above: Performed By: #### H LAB ####[facility] [place] [address] 759[address]HgnqcjSt. Mary'S Medical Center[address] [place] [address] 02233 DRB4* Negative Normal [facility] Comment on above: Performed By: #### H LAB ####[facility] [place] [address] 5[address]NtzibpSt. Mary'S Medical Center[address] [place] [address] 44751 DRB5* Negative Normal [facility] Comment on above: Performed By: #### H LAB ####[facility] [place] [address] 23251IheojhSt. Mary'S Medical Center[address] [place] [address] 31807 HLA A* 24 Normal [facility] Comment on above: Performed By: #### H LAB ####[facility] [place] [address] 865[address]EmwwrqSt. Mary'S Medical Center[address] [place] [address] 77463 HLA A* 02 Normal [facility] Comment on above: Performed By: #### H LAB ####[facility] [place] [address] 61642YxxmxgSt. Mary'S Medical Center[address] [place] [address] 82151 HLA B* 56 Normal [facility] Comment on above: Performed By: #### H LAB ####[facility] [facility] [address]WruupkSt. Mary'S Medical Center[address] [place], [place] [address] HLA B* 08 Normal [facility] Comment on above: Performed By: #### H LAB ####[facility] [facility] [address]WxgrrxSt. Mary'S Medical Center[address] [place], [place] [address] HLA C* 07 Normal [facility] Comment on above: Performed By: #### H LAB ####[facility] [facility] [address]BlvnuiSt. Mary'S Medical Center[address] [place] [address] HLA C* 01 Normal [facility] Comment on above: Performed By: #### H LAB ####[facility] [facility] [address]PgxediSt. Mary'S Medical Center[address] [place] [address]88 HLA interpretation SEE NOTES Normal [facility] Comment on above: Result Comment: (NOT E)LISTED AMBIGUITIES ARE NOT EXCLUDED:DPB1*04:XX3 DPB1*498:01DPB1*04:XX3 DPB1*572:01DPB1*14:01 DPB1*459:01DPB1*14:01 DPB1*464:01DPB1*14:01 DPB1*534:01DPB1*14:01 DPB1*615:01DPB1*14:01 DPB1*618:01DPB1*350:01 DPB1*651:01DPB1*459:01 DPB1*498:01DPB1*459:01 DPB1*572:01DPB1*464:01 DPB1*498:01DPB1*464:01 DPB1*572:01DPB1*498:01 DPB1*534:01DPB1*498:01 DPB1*615:01DPB1*498:01 DPB1*618:01DPB1*534:01 DPB1*572:01DPB1*572:01 DPB1*615:01DPB1*572:01 DPB1*618:01DPB1*XX3:=:04:01/04:01N Performed By: #### H LAB ####[facility] [place] [address], [place] [address]FvczwdSt. Mary'S Medical Center[address] [place] [address] 36778 B 8,56 Normal [facility] Comment on above: Performed By: #### H LAB ####[facility] [place] [address], [place] [address]LejacxSt. Mary'S Medical Center[address] [place] [address] 89671 C 1,7 Normal [facility] Comment on above: Performed By: #### H LAB ####[facility] [facility] [address]MhlbmuSt. Mary'S Medical Center[address] [place] [address], [place] [address] A 2,24 Normal [facility] Comment on above: Performed By: #### H LAB ####[facility] [place] [address], [place] [address]IqcxnsSt. Mary'S Medical Center[address] [place] [address] Vital Signs Date Time Vital Sign Value Performing Clinician Facility 04-01-2022 12:00-0500 Body height 167.64 cm Thais Guadarrama [facility] Other 04-01-2022 12:00-0500 Body mass index (BMI) [Ratio] 23.4 kg/m2 Thais Guadarrama [facility] Other 04-01-2022 12:00-0500 Body temperature 98.7 [degF] Thais Guadarrama [facility] Other 04-01-2022 12:00-0500 Body weight 65.77 kg Thais Guadarrama [facility] Other 04-01-2022 12:00-0500 Diastolic blood pressure 63 mm[Hg] Thais Guadarrama [facility] Other 04-01-2022 12:00-0500 Respiratory rate 18 /min Thais Guadarrama [facility] Other 04-01-2022 12:00-0500 SaO2% (BldA) [Mass fraction] 98 % Thais Guadarrama [facility] Other 04-01-2022 12:00-0500 Systolic blood pressure 102 mm[Hg] Thais Chiara [facility] Other Encounters Encounter Date Encounter Type Care Provider Facility Start: 04-01-2022 End: 04-01-2022 ambulatory Thais Guadarrama [facility] Other Start: 04-01-2022 Office outpatient ne w 20 minutes Thais Guadarrama [facility] Start: 01-18-2022 End: 01-19-[address] EDUARDO BRIDGES Facility:[facility] Start: 12-02-2021 End: 12-03-[address] EDGARD PULIDO Facility:[facility] Start: 11-10-2021 End: 11-10-[address] EDGARD PULIDO Facility:[facility] Start: 07-17-2017 Ambulatory AMER RAJAB [facility] Start: 07-17-2017 Ambulatory HUMBLE VALDIVIA [facility] Payers Date Payer Category Payer Unknown [id number] 06.02.83 [id number] 1979 Unknown [id number] 06.02.83 [id number] 1959 Unknown [id number] 1959 Unknown [id number] Unknown [id number] Social History Date Type Detail Facility Unknown if ever smoked [facility] Other Sex Assigned At Sex Assigned At Bir th [facility] Other Evaluation note 04-01-2022 Note Date & Type Note Facility 04-01-2022 Evaluation note Encounter Date Diagnosis Assessment Notes Mar, Cough, unspecified type (ICD-10 - R05.9) Mar, Acute sinusitis, recurrence not specified, unspecified location (ICD-10 - J01.90) Sinusitis home care material was printed Drink plenty fluids, get plenty of rest. Take Tylenol or Motrin as needed for aches pains or fevers. Take the Augmentin as prescribed until gone. Follow-up with your family physician if no improvement in 2 to 3 days. [facility]oL Med[facility] Other Summary Purpose Family History No Family History Records FoundNo Family History Records Found Advance Directives No Advanced Directives Records FoundNo Advanced Directives Records Found Additional Source Comments INFORMATION SOURCE (unrecogn ized section and content) DATE CREATED AUTHOR 10/05/2017 [facility] DATE CREATED AUTHOR AUTHOR'S KAYDEN SHANKS 01/21/2022 [facility] REASON FOR VISIT (unrecogniz ed section and content) COUGH, CONGESTION FOR RECORDS PERTAINING TO PATIENTS WHO ARE OR HAVE BEEN ENROLLED IN A CHEMICAL DEPENDENCY/SUBSTANCEABUSE PROGRAM, SOME INFORMATION MAY BE OMITTED. This clinical summary was aggregated from multiple sources. Caution should be exercised in using it in the provision of clinical care. This summary normalizes information from multiple sources, and as a consequence, information in this document may materially change the coding, format and clinical context of patient data. In addition, data may be omitted in some cases. CLINICAL DECISIONS SHOULD BE BASED ON THE PRIMARY CLINICAL RECORDS. [employer] provides no warranty or guarantee of the accuracy or completeness of information in this document.
== END 2024-06-05 22:06 | disposition home or self-care (01) ==
LOC: LAB 22:05
PROVIDERS: PCP Family Medicine; Visit Provider Obstetrics & Gynecology
DX: Z01.419 Encounter for gynecological examination (general) (routine) without abnormal findings (principal)
CPT/HCPCS: 87624; 88175

== ENCOUNTER 2024-10-10 09:51 | Outpatient (OUT) | payer BC, SELFPAY ==
--- NOTE | 2024-10-10 09:53 | MM_ITS ---
Patient Name: BRIANNA GRUBER MR#: [id number] : 1980 Exam Date: 10/10/2024 Ordering Doctor: DR MYKE BYRNES . RADIOLOGY REPORT PROCEDURE: MM TOMOSYNTHESIS SCREENING BI COMPARISON: MM TOMOSYNTHESIS SCREENING BI, 04/07/2023. MG MAMM SCREEN 3D [facility] CAD, 01/18/2022. MG MAMM SCREEN 3D [facility] CAD, 11/12/2020. INDICATIONS: Screening Calculator Name NCI Breast Cancer Risk Assessment Tool 5 Year Breast Cancer Risk 0.70% Lifetime Breast Cancer Risk 8.70% Personal Breast Cancer No Personal Ovarian Cancer No Treatments None Family Cancers None LOCATION: [facility] BREAST COMPOSITION: There are scattered areas of fibroglandular density. FINDINGS: RIGHT BREAST: No significant suspicious finding. There is a breast implant which appears grossly intact. This is unchanged compared LEFT BREAST: No significant suspicious finding. There is a breast implant which appears to be grossly intact. This is unchanged. There is a similar is symmetry along the medial aspect of the left breast showing no significant interval change. DIAGNOSTIC CATEGORY 2--BENIGN FINDING: RECOMMENDATIONS: ROUTINE MAMMOGRAM AND CLINICAL EVALUATION IN 12 MONTHS. PLEASE NOTE: A NORMAL MAMMOGRAM DOES NOT EXCLUDE THE POSSIBILITY OF BREAST CANCER. A CLINICALLY SUSPICIOUS PALPABLE LUMP SHOULD BE BIOPSIED. Dictated by: Logan Sun MD on 10/10/2024 at 13:57 Approved by: Logan Sun MD on 10/10/2024 at 14:11
--- OUTSIDE RECORDS SUMMARY | 2024-10-10 10:14 | XMS_ITS | CCD ---
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 Name Role Phone RAJAB, AMER Unavailable Unavailable SELF, SELF Unavailable Unavailable PULIDO, DANITZA Unavailable Unavailable PESAVENTO, HUMBLE Unavailable Unavailable SELF, SELF Unavailable Unavailable PULIDO, DANITZA Unavailable Unavailable RAJAB, AMER Unavailable Unavailable RAJAB, AMER Unavailable Unavailable PULIDO, DANITZA Unavailable Unavailable RAJAB, AMER Unavailable Unavailable PESAVENTO, HUMBLE Unavailable Unavailable ASHOK, DANITZA Unavailable Unavailable KARASIK, DR CLARK Admitting Unavailable PULIDO, DR DANITZA Shaikh Primary Care Unavailable KARASIK, DR CLARK Attending Unavailable KARASIK, DR CLARK Consulting Unavailable WEST, DR ANANTH Guerra Consulting Unavailable PULIDO, DR DANITZA Shaikh Primary Care Unavailable KARASIK, DR CLARK Attending Unavailable KARASIK, DR CLARK Consulting Unavailable KARASIK, DR CLARK Admitting Unavailable PULIDO, DR DANITZA Shaikh Attending Unavailable PULIDO, DR DANITZA Shaikh Consulting Unavailable PULIDO, DR DANITZA Shaikh Primary Care Unavailable PULIDO, DR DANITZA Shaikh Admitting Unavailable Thais Guadarrama Unavailable Danitza Pulido MD Primary Care Provider MYKE CACERES Attending Unavailable Medications Current Medications Medication Drug Class(es) Dates Sig (Normalized) Sig (Original) amoxicillin 875 mg / clavulanate 125 mg oral tablet (1 source) Penicillin-class Antibacterial Start: 04-01-2022 take 1 tablet by mouth every twelve hours Amoxicillin-Pot Clavulanate 875-125 MG 1 tablet Orally every 12 hrs for 10 day(s) Mar, Active Completed/Discontinued Medications Medication Drug Class(es) Dates Sig (Normalized) Sig (Original) fluconazole 150 mg oral tablet (2 sources) Azole Antifungal Start: 06-05-2024 End: 06-05-2024 take 1 tablet by mouth once, then take 1 tablet by mouth once fluconazole (Diflucan) 150 MG tablet Indications: Yeast infection Take 1 tablet (150 mg) by mouth 1 (one) time for 1 dose This is a 1 time dose, take single tablet by mouth. 1 tablet 1 06/05/2024 06/05/2024 Problems Active Problems Problem Classification Problem Date Documented Date Episodic/Chronic Immunizations and screening for infectious disease (1 source) Encounter for screening for human papillomavirus (HPV); Translations: [ENC SCREENING HUMAN PAPILLOMAVIRUS] Onset: 11-13-2021 Episodic Mycoses (2 sources) Mycosis; Translations: [Candidiasis, unspecified] 06-05-2024 Episodic Other screening for suspected conditions (not mental disorders or infectious disease) (10 sources) Encounter for screening mammogram for malignant [...] Test Name Value Interpretation Reference Range Facility IGP,APTIMA HPV,AGE GDLNon AGE GDLN ACOG TESTING Note . [facility] Comment on above: TESTS RESULT FLAG UN ITS REF RANGE LAB Clinician Provided Cytology Information Source.............Cervix;Endocervix No. of containers..01 ThinPrep Vial Age Algo ACOG Ivory... FLAG LEGEND: L-Low Normal,H-High Normal,LL-Alert Low,HH-Alert High <-Panic Low,>-Panic High,A-Abnormal,AA-Critical Abnormal Performed at: 01 =[address] [id number] Melissa Simmons MD, HPV APTIMA Negative Negative [facility] Comment on above: This nucleic acid am plification test detects fourteen high- risk HPV types (16,18,31,33,35,39,45,51,52,56,58,59,66,68) without differentiation. Performed at: =[address] [id number] Entry Level Manufacturing Engineer: Melissa Simmons MD, Phone: [phone] Performed at: [address] [id number] Entry Level Manufacturing Engineer: Melissa Simmons MD, Phone: [phone] IGP, APTIMA HPV, RFX 16/18,45 Note . [facility] Comment on above: TESTS RESULT FLAG UN ITS REF RANGE LAB DIAGNOSIS: 02 NEGATIVE FOR INTRAEPITHELIAL LESION OR MALIGNANCY. FUNGAL ORGANISMS MORPHOLOGICALLY CONSISTENT WITH MALIKA SPECIES ARE PRESENT. Specimen adequacy: 02 Satisfactory for evaluation. Endocervical and/or squamous metaplastic cells (endocervical component) are present. Performed by: Jordin Mckeon, Loop Cutter (ASCP) . 02 Note: Note 02 The Pap smear is a screening test designed to aid in the detection of premalignant and malignant conditions of the uterine cervix. It is not a diagnostic procedure and should not be used as the sole means of detecting cervical cancer. Both false-positive and false-negative reports do occur. Test Methodology: Note 02 This liquid based ThinPrep(R) pap test was screened with the use of an image guided system. HPV Genotype Reflex Note 02 Criteria not met, HPV Genotype not performed. FLAG LEGEND: L-Low Normal,H-High Normal,LL-Alert Low,HH-Alert High <-Panic Low,>-Panic High,A-Abnormal,AA-Critical Abnormal Performed at: [address] [address] Melissa Simmons MD, BRUSH-SPATULA CERVIX ENDOCERVIX [facility] [employer] Quick Fluon 04-01-2022 FLUAV Ab CF (S) [Titer] Negative [employer] Other FLUBV Ab CF (S) [Titer] Negative [employer] Other MG MAMM SCREEN 3D HALEY CADon 01-18-2022 MG MAMM SCREEN 3D HALEY CAD Patient: SONIA GRUBER Exam Date: 01/18/2022 : 1980 Gender:F Ordering : DR EDUARDO BRIDGES . Admission #: [id number] Family : Order #: [id number] CLICK HERE TO VIEW EXAM RADIOLOGY REPORT PROCEDURE: MAMMOGRAM SCREENING 3D BILATERAL CAD COMPARISON: MG MAMM SCREEN 3D HALEY CAD, 2020. INDICATIONS: Screening mammography Calculator Name NCI Breast Cancer Risk Assessment Tool 5 Year Breast Cancer Risk 0.60% Lifetime Breast Cancer Risk 8.90% Personal Breast Cancer No Personal Ovarian Cancer No Treatments None Family Cancers None LOCATION: The [facility] BREAST COMPOSITION: Scattered areas fibroglandular density. FINDINGS: [...] MD on 01/19/2022 at 07:50 Normal [facility] CBC AUTO DIFFon 12-02-2021 BASO # 0.0 103/ul Normal 0.0-0.1 [facility] Comment on above: Performed By: #### H FPFCBC #### [facility] [address] [place] [address] Dr. Duncan White Basophils/100 WBC (Bld) 0.7 % Normal 0.2-2.0 [facility] Comment on above: Performed By: #### H FPFCBC #### [facility] [address] [place] [address] Dr. Duncan White EO # 0.1 103/ul Normal 0.0-0.7 [facility] Comment on above: Performed By: #### H FPFCBC #### [facility] [address] [place] [address] Dr. Duncan White Eosinophils/100 WBC (Bld) 1.7 % Normal 0.9-7.0 [facility] Comment on above: Performed By: #### H FPFCBC #### [facility] [address] [place] [address] Dr. Duncan White Erythrocyte distribution width (RBC) [Ratio] 12.6 % Normal 11.0-15.0 [facility] Comment on above: Performed By: #### H FPFCBC #### [facility] [address] [place] [address] Dr. Duncan White Hematocrit (Bld) [Volume fraction] 37.7 % Normal 36.0-48.0 [facility] Comment on above: Performed By: #### H FPFCBC #### [facility] [address] [address] [address] Duncan White Hemoglobin (Bld) [Mass/Vol] 12.5 g/dL Normal 12.0-16.0 [facility] Comment on above: Performed By: #### H FPFCBC #### [facility] [address] [address] [address] Duncan White IG # 0.01 10e3/ul Normal 0.00-0.03 [facility] Comment on above: Performed By: #### H FPFCBC #### [facility] [address] [place] [address] Dr. Duncan White IG % 0.2 % Normal 0.0-0.5 [facility] Comment on above: Performed By: #### H FPFCBC #### [facility] [address] [place] [address] Dr. Duncan White LYMPH # 1.9 103/ul Normal 1.2-3.8 [facility] Comment on above: Performed By: #### H FPFCBC #### [facility] [address] [place] [address] Dr. Duncan White Lymphocytes/100 WBC (Bld) 46.6 % Normal 20.5-60.0 [facility] Comment on above: Performed By: #### H FPFCBC #### [facility] [address] [place] [address] Dr. Duncan White MCH (RBC) [Entitic mass] 29.4 pg Normal 26.7-34.0 [facility] Comment on above: Performed By: #### H FPFCBC #### [facility] [address] [place] [address] Dr. Duncan White MCHC (RBC) [Mass/Vol] 33.2 g/dL Normal 29.9-35.2 [facility] Comment on above: Performed By: #### H FPFCBC #### [facility] [address] [place] [address] Dr. Duncan White MCV (RBC) [Entitic vol] 88.7 fL Normal 81.0-99.0 [facility] Comment on above: Performed By: #### H FPFCBC #### [facility] [address] [place] [address] Dr. Duncan White MONO # 0.3 103/ul Normal 0.3-0.8 [facility] Comment on above: Performed By: #### H FPFCBC #### [facility] [address] [place] [address] Dr. Duncan White Monocytes/100 WBC (Bld) 8.0 % Normal 1.7-12.0 [facility] Comment on above: Performed By: #### H FPFCBC #### [facility] [address] [place] [address] Dr. Duncan White NEUT # 1.8 103/ul Normal 1.4-6.5 [facility] Comment on above: Performed By: #### H FPFCBC #### [facility] [address] [place] [address] Dr. Duncan White Neutrophils/100 WBC (Bld) 42.8 % Critically low 43.0-75.0 [facility] Comment on above: Performed By: #### H FPFCBC #### [facility] [address] [place] [address] Dr. Duncan White Platelet mean volume (Bld) [Entitic vol] 9.6 fL Normal 9.5-13.5 [facility] Comment on above: Performed By: #### H FPFCBC #### [facility] [address] [place] [address] Dr. Duncan White PLT 249 103/ul Normal 150-450 [facility] Comment on above: Performed By: #### H FPFCBC #### [facility] [address] [place] [address] Dr. Duncan White RBC 4.25 106/ul Normal 4.20-5.40 [facility] Comment on above: Performed By: #### H FPFCBC #### [facility] [address] [place] [address] Dr. Duncan White WBC 4.1 103/ul Normal 4.0-11.0 [facility] Comment on above: Performed By: #### H FPFCBC #### [facility] [address] [address] [address] Duncan White [employer] PROFILEon 022 Albumin [Mass/Vol] 3.9 g/dL Normal 3.4-5.0 [facility] Comment on above: Performed By: #### H FPF #### [facility] [address] [place] [address] Dr. Duncan White Albumin/Globulin [Mass ratio] 1.3 {ratio} Normal [facility] Comment on above: Performed By: #### H FPF #### [facility] [address] [place] [address] Dr. uDncan White ALP [Catalytic activity/Vol] 51 U/L Normal 46-116 [facility] Comment on above: Performed By: #### H FPF #### [facility] [address] [place] [address] Dr. Duncan White ALT [Catalytic activity/Vol] 15 U/L Normal 14-59 [facility] Comment on above: Performed By: #### H FPF #### [facility] [address] [place] [address] Dr. Duncan White AST [Catalytic activity/Vol] 14 U/L Critically low 15-37 [facility] Comment on above: Performed By: #### H FPF #### [facility] [address] [place] [address] Dr. Duncan White Bilirubin [Mass/Vol] 1.2 mg/dL Critically high 0.2-1.0 [facility] Comment on above: Performed By: #### H FPF #### [facility] [address] [place] [address] Dr. Duncan White Calcium [Mass/Vol] 8.6 mg/dL Normal 8.5-10.[address] [facility] Comment on above: Performed By: #### H FPF #### [facility] [address] [place] [address] Dr. Duncan White Chloride [Moles/Vol] 102 mmol/L Normal 98-107 [facility] Comment on above: Performed By: #### H FPF #### [facility] [address] [address] [address] Duncan White CHOL-HDL RATIO NORM SEE BELOW Normal [facility] Comment on above: Result Comment: 3.3 - 4.4 LOW RISK 4.4 - 7.1 AVERAGE RISK 7.1 - 11.0 MODERATE RISK >11.0 HIGH RISK Performed By: #### H FPF #### [facility] [address] [address] [address] Duncan White Cholesterol [Mass/Vol] 156 mg/dL Normal <=200 [facility] Comment on above: Performed By: #### H FPF #### [facility] [address] [address] [address] Duncan White Cholesterol in HDL [Mass/Vol] 72 mg/dL Critically high 40-60 [facility] Comment on above: Performed By: #### H FPF #### [facility] [address] [address] [address] Duncan White Cholesterol in LDL [Mass/Vol] 80.0 mg/dL Normal [facility] Comment on above: Performed By: #### H FPF #### [facility] [address] [address] [address] Duncan White Cholesterol.total/ Cholesterol in HDL [Mass ratio] 2.2 {ratio} Normal [facility] Comment on above: Performed By: #### H FPF #### [facility] [address] [address] [address] Duncan White CO2 [Moles/Vol] 27.1 mmol/L Normal 21.0-32.0 [facility] Comment on above: Performed By: #### H FPF #### [facility] [address] [address] [address] Duncan White Creatinine [Mass/Vol] 0.72 mg/dL Normal 0.55-1.02 [facility] Comment on above: Performed By: #### H FPF #### [facility] [address] [address] [address] Duncan White Globulin (S) [Mass/Vol] 3.1 g/dL Normal [facility] Comment on above: Performed By: #### H FPF #### [facility] [address] [address] [address] Duncan White Glucose [Mass/Vol] 90 mg/dL Normal 74-106 [facility] Comment on above: Performed By: #### H FPF #### [facility] [address] [address] [address] Duncan White HDL NORMAL > or = 60 mg/dl - LO W CARDIOVASCULAR RISK <40 mg/dl - HIGH CARDIOVASCULAR RISK Normal [facility] Comment on above: Performed By: #### H FPF #### [facility] [address] [address] [address] Duncan White LDL CALC NORMAL SEE BELOW Normal [facility] Comment on above: Result Comment: <100 mg/dl OPTIMAL 100 - 129 mg/dl NEAR OR ABOVE OPTIMAL 130 - 159 mg/dl BORDERLINE HIGH 160 - 189 mg/dl HIGH >190 mg/dl VERY HIGH Performed By: #### H FPF #### [facility] [address] [address] [address] Duncan White Potassium [Moles/Vol] 3.6 mmol/L Normal 3.5-5.1 [facility] Comment on above: Performed By: #### H FPF #### [facility] [address] [address] [address] Duncan White Protein [Mass/Vol] 7.0 g/dL Normal 6.4-8.[address] [facility] Comment on above: Performed By: #### H FPF #### [facility] [address] [address] [address] Duncan White Sodium [Moles/Vol] 135 mmol/L Critically low 136-145 [facility] Comment on above: Performed By: #### H FPF #### [facility] [address] [address] [address] Duncan White Triglyceride [Mass/Vol] 20 mg/dL Normal <=150 [facility] Comment on above: Performed By: #### H FPF #### [facility] [address] [address] [address] Duncan White TSH 0.896 uIU/mL Normal 0.358-3.740 [facility] Comment on above: Performed By: #### H FPF #### [facility] [address] [place] [address] Dr. Duncan White Urea nitrogen [Mass/Vol] 14.0 mg/dL Normal 7.0-18.0 [facility] Comment on above: Performed By: #### H FPF #### [facility] [address] [place] [address] Dr. Duncan White Urea nitrogen/Creatinin e [Mass ratio] 19.4 mg/mg Normal [facility] Comment on above: Performed By: #### H FPF #### [facility] [address] [place] [address] Dr. Duncan White VLDL CALC 4.0 mg/dL Normal [facility] Comment on above: Performed By: #### H FPF #### [facility] [address] [place] [address] Dr. Duncan White PAP ACOG PANEL 2: 30 to 65on 11-15-2021 . . Normal [facility] Comment on above: Result Comment: Perf ormed at: WB Performed By: #### [id number] #### [facility] [address] [place] [address] Dr. Duncan White Age Gdln ACOG Testing 30-65 Normal [facility] Comment on above: Performed By: #### [id number] #### [facility] [address] [place] [address] Dr. Duncan White DIAGNOSIS: Comment Normal [facility] Comment on above: Result Comment: NEGA TIVE FOR INTRAEPITHELIAL LESION OR MALIGNANCY. Performed at: WB Performed By: #### [id number] #### [facility] [address] [place] [address] Dr. Duncan White HPV Aptima Negative Normal Negative [facility] Comment on above: Result Comment: This nucleic acid amplification test detects fourteen high-risk HPV types (16,18,31,33,35,39,45,51,52,56,58,59,66,68) without differentiation. Performed at: =G Performed By: #### [id number] #### [facility] [address] [place] [address] Dr. Duncan White Methodology: Comment Normal [facility] Comment on above: Result Comment: This liquid based ThinPrep(R) pap test was screened with the use of an image guided system. Performed at: WB Performed By: #### [id number] #### [facility] [address] [place] [address] Dr. Duncan White Note: Comment Normal [facility] Comment on above: Result Comment: The Pap smear is a screening test designed to aid in the detection of premalignant and malignant conditions of the uterine cervix. It is not a diagnostic procedure and should not be used as the sole means of detecting cervical cancer. Both false-positive and false-negative reports do occur. . Performed at: WB Performed By: #### [id number] #### [facility] [address] [place] [address] Dr. Duncan White Performed by: Comment Normal [facility] Comment on above: Result Comment: Urbano Pena Loop Cutter (ASCP) Performed at: WB Performed By: #### [id number] #### [facility] [address] [place] [address] Dr. Duncan White Specimen adequacy: Comment Normal [facility] Comment on above: Result Comment: Sati sfactory for evaluation. Endocervical and/or squamous metaplastic cells (endocervical component) are present. Performed at: WB Performed By: #### [id number] #### [facility] [address] [place] [address] Dr. Duncan White West Nile Virus, IgG and IgM on 07-21-2017 West Nile Virus Ab, IgG <1.30 Normal <1.30 [facility] Comment on above: Performed By: #### C BCDFC, PTPTT, ALB, CA, CHM7, ENZ4GB, HDLT, IPB, MGO, URICB, QHCGB, HBSAB, HBSAG, A1CB, HCAB, HIV, HBCBG, EBVG, SYPHG, CMVG ####[facility] [place] [id number] [place] [address] [place] [address]#### YWNVP ####Reference lab information reported with result West Nile Virus Ab, IgM <0.90 Normal <0.90 [facility] Comment on above: Result Comment: (NOT [...] induced by other flavivirus infections (e.g.Dengue virus, Falls encephalitis virus) may showcross-reactivity with WNV.Test Performed by [facility],[address] [place] [id number] Davenport M.D., Ph.D., Director of [phone], [facility] [id number] sent to [facility] Performed By: #### C BCDFC, PTPTT, ALB, CA, CHM7, ENZ4GB, HDLT, IPB, MGO, URICB, QHCGB, HBSAB, HBSAG, A1CB, HCAB, HIV, HBCBG, EBVG, SYPHG, CMVG ####[facility] [place] [id number] [place] [address]#### YWNVP ####Reference lab information reported with result [...] I have reviewed andapproved this report. Normal [facility] CMV IgG Antibodyon 8 CMV IgG Antibody Positive Abnormal Negative [facility] Comment on above: Performed By: #### C BCDFC, PTPTT, ALB, CA, CHM7, ENZ4GB, HDLT, IPB, MGO, URICB, QHCGB, HBSAB, HBSAG, A1CB, HCAB, HIV, HBCBG, EBVG, SYPHG, CMVG ####[facility] [place], [place] [id number] [address] [place] [address]#### YWNVP ####Reference lab information reported with result ALP,ALT,AST,LD,GGT,BILIon Alanine aminotransferase (ALT) 17 U/L Normal 9-48 [facility] Comment on above: Performed By: #### C BCDFC, PTPTT, ALB, CA, CHM7, ENZ4GB, HDLT, IPB, MGO, URICB, QHCGB, HBSAB, HBSAG, A1CB, HCAB, HIV, HBCBG, EBVG, SYPHG, CMVG ####[facility] [place], [place] [id number] [address] [place] [address]#### YWNVP ####Reference lab information reported with result Alkaline phosphatase (ALP) 55 U/L Normal 32-126 [facility] Comment on above: Performed By: #### C BCDFC, PTPTT, ALB, CA, CHM7, ENZ4GB, HDLT, IPB, MGO, URICB, QHCGB, HBSAB, HBSAG, A1CB, HCAB, HIV, HBCBG, EBVG, SYPHG, CMVG ####[facility] [place] [address] [place] [address]#### YWNVP ####Reference lab information reported with result Aspartate aminotransferase (AST) 17 U/L Normal 14-40 [facility] Comment on above: Performed By: #### C BCDFC, PTPTT, ALB, CA, CHM7, ENZ4GB, HDLT, IPB, MGO, URICB, QHCGB, HBSAB, HBSAG, A1CB, HCAB, HIV, HBCBG, EBVG, SYPHG, CMVG ####[facility] [place], [place] [id number] [address] [place] [address]#### YWNVP ####Reference lab information reported with result Bilirubin (direct) 0.2 mg/dL Normal <0.3 [facility] Comment on above: Performed By: #### C BCDFC, PTPTT, ALB, CA, CHM7, ENZ4GB, HDLT, IPB, MGO, URICB, QHCGB, HBSAB, HBSAG, A1CB, HCAB, HIV, HBCBG, EBVG, SYPHG, CMVG ####[facility] [address] [place], [place] [id number] [address] [place] [address]#### YWNVP ####Reference lab information reported with result Bilirubin (total) 0.6 mg/dL Normal <1.5 [facility] Comment on above: Performed By: #### C BCDFC, PTPTT, ALB, CA, CHM7, ENZ4GB, HDLT, IPB, MGO, URICB, QHCGB, HBSAB, HBSAG, A1CB, HCAB, HIV, HBCBG, EBVG, SYPHG, CMVG ####[facility] [place], [place] [id number] [address] [place] [address]#### YWNVP ####Reference lab information reported with result GGT 12 U/L Normal 8-64 [facility] Comment on above: Performed By: #### C BCDFC, PTPTT, ALB, CA, CHM7, ENZ4GB, HDLT, IPB, MGO, URICB, QHCGB, HBSAB, HBSAG, A1CB, HCAB, HIV, HBCBG, EBVG, SYPHG, CMVG ####[facility] [place], [place] [id number] [place] [address]#### YWNVP ####Reference lab information reported with result LD Total 153 U/L Normal 100-190 [facility] Comment on above: Performed By: #### C BCDFC, PTPTT, ALB, CA, CHM7, ENZ4GB, HDLT, IPB, MGO, URICB, QHCGB, HBSAB, HBSAG, A1CB, HCAB, HIV, HBCBG, EBVG, SYPHG, CMVG ####[facility] [place] [address]#### YWNVP ####Reference lab information reported with result Albuminon 07-17-2017 Albumin 4.2 g/dL Normal 3.5-5.0 [facility] Comment on above: Performed By: #### C BCDFC, PTPTT, ALB, CA, CHM7, ENZ4GB, HDLT, IPB, MGO, URICB, QHCGB, HBSAB, HBSAG, A1CB, HCAB, HIV, HBCBG, EBVG, SYPHG, CMVG ####[place] [address]#### YWNVP ####Reference lab information reported with result CBC,PLATELET,DIFFERENTIAL - CCLon 07-17-2017 Abs Baso 0.03 K/uL Normal 0.01-0.08 [facility] Comment on above: Performed By: #### C BCDFC, PTPTT, ALB, CA, CHM7, ENZ4GB, HDLT, IPB, MGO, URICB, QHCGB, HBSAB, HBSAG, A1CB, HCAB, HIV, HBCBG, EBVG, SYPHG, CMVG ####[place] [address] [place], [place] [id number] [address] [place] [address]#### YWNVP ####Reference lab information reported with result Abs Eos 0.04 K/uL Normal 0.04-0.36 [facility] Comment on above: Performed By: #### C BCDFC, PTPTT, ALB, CA, CHM7, ENZ4GB, HDLT, IPB, MGO, URICB, QHCGB, HBSAB, HBSAG, A1CB, HCAB, HIV, HBCBG, EBVG, SYPHG, CMVG ####[facility] [place] [address] [place] [address]#### YWNVP ####Reference lab information reported with result Abs Shelby 0.36 K/uL Normal 0.24-0.86 [facility] Comment on above: Performed By: #### C BCDFC, PTPTT, ALB, CA, CHM7, ENZ4GB, HDLT, IPB, MGO, URICB, QHCGB, HBSAB, HBSAG, A1CB, HCAB, HIV, HBCBG, EBVG, SYPHG, CMVG ####[facility] [place] [address] [place] [address]#### YWNVP ####Reference lab information reported with result Basophils/100 WBC Auto (Bld) 0.7 % Normal [facility] Comment on above: Performed By: #### C BCDFC, PTPTT, ALB, CA, CHM7, ENZ4GB, HDLT, IPB, MGO, URICB, QHCGB, HBSAB, HBSAG, A1CB, HCAB, HIV, HBCBG, EBVG, SYPHG, CMVG ####[place] [address] [place] [address] [place] [address]#### YWNVP ####Reference lab information reported with result DIFFERENTIAL TYPE Electronic Differential Normal [facility] Comment on above: Performed By: #### C BCDFC, PTPTT, ALB, CA, CHM7, ENZ4GB, HDLT, IPB, MGO, URICB, QHCGB, HBSAB, HBSAG, A1CB, HCAB, HIV, HBCBG, EBVG, SYPHG, CMVG ####[facility] [place] [address], [address] [place] [address]#### YWNVP ####Reference lab information reported with result Eosinophils/100 leukocytes 0.9 % Normal [facility] Comment on above: Performed By: #### C BCDFC, PTPTT, ALB, CA, CHM7, ENZ4GB, HDLT, IPB, MGO, URICB, QHCGB, HBSAB, HBSAG, A1CB, HCAB, HIV, HBCBG, EBVG, SYPHG, CMVG ####[facility] [place] [address], [address] [place] [address]#### YWNVP ####Reference lab information reported with result Erythrocytes (RBC) 4.50 10*6/uL Normal 3.93-5.22 [facility] Comment on above: Performed By: #### C BCDFC, PTPTT, ALB, CA, CHM7, ENZ4GB, HDLT, IPB, MGO, URICB, QHCGB, HBSAB, HBSAG, A1CB, HCAB, HIV, HBCBG, EBVG, SYPHG, CMVG ####[place] [address] [place] [address], [place] [address] [place] [address]#### YWNVP ####Reference lab information reported with result Erythrocytes (RBC) 12.5 % Normal 11.7-14.4 [facility] Comment on above: Performed By: #### C BCDFC, PTPTT, ALB, CA, CHM7, ENZ4GB, HDLT, IPB, MGO, URICB, QHCGB, HBSAB, HBSAG, A1CB, HCAB, HIV, HBCBG, EBVG, SYPHG, CMVG ####[facility] [place], [place] [id number] [address] [place] [address]#### YWNVP ####Reference lab information reported with result Hematocrit (HCT) 40.1 % Normal 34.1-44.9 [facility] Comment on above: Performed By: #### C BCDFC, PTPTT, ALB, CA, CHM7, ENZ4GB, HDLT, IPB, MGO, URICB, QHCGB, HBSAB, HBSAG, A1CB, HCAB, HIV, HBCBG, EBVG, SYPHG, CMVG ####[facility] [place], [place] [id number] [address] [place] [address]#### YWNVP ####Reference lab information reported with result Hemoglobin mass conc (Bld) 32.9 g/dL Normal 32.2-35.5 [facility] Comment on above: Performed By: #### C BCDFC, PTPTT, ALB, CA, CHM7, ENZ4GB, HDLT, IPB, MGO, URICB, QHCGB, HBSAB, HBSAG, A1CB, HCAB, HIV, HBCBG, EBVG, SYPHG, CMVG ####[facility] [place] [address] [place] [address]#### YWNVP ####Reference lab information reported with result Hemoglobin mass conc (Bld) 13.2 g/dL Normal 11.2-15.7 [facility] Comment on above: Performed By: #### C BCDFC, PTPTT, ALB, CA, CHM7, ENZ4GB, HDLT, IPB, MGO, URICB, QHCGB, HBSAB, HBSAG, A1CB, HCAB, HIV, HBCBG, EBVG, SYPHG, CMVG ####[facility] [place], [place] [id number] [address] [place] [address]#### YWNVP ####Reference lab information reported with result Hemoglobin mass conc (Bld) 29.3 pg Normal 25.6-32.2 [facility] Comment on above: Performed By: #### C BCDFC, PTPTT, ALB, CA, CHM7, ENZ4GB, HDLT, IPB, MGO, URICB, QHCGB, HBSAB, HBSAG, A1CB, HCAB, HIV, HBCBG, EBVG, SYPHG, CMVG ####[facility] [place] [address] [place] [address]#### YWNVP ####Reference lab information reported with result IMMATURE GRANS % 0.2 % Normal [facility] Comment on above: Performed By: #### C BCDFC, PTPTT, ALB, CA, CHM7, ENZ4GB, HDLT, IPB, MGO, URICB, QHCGB, HBSAB, HBSAG, A1CB, HCAB, HIV, HBCBG, EBVG, SYPHG, CMVG ####[facility] [place] [address] [place] [address]#### YWNVP ####Reference lab information reported with result IMMATURE GRANS ABSOLUTE 0.01 K/uL Normal 0.00-0.03 [facility] Comment on above: Performed By: #### C BCDFC, PTPTT, ALB, CA, CHM7, ENZ4GB, HDLT, IPB, MGO, URICB, QHCGB, HBSAB, HBSAG, A1CB, HCAB, HIV, HBCBG, EBVG, SYPHG, CMVG ####[facility] [place] [address]#### YWNVP ####Reference lab information reported with result Lymphocytes 1.91 10*3/uL Normal 1.18-3.74 [facility] Comment on above: Performed By: #### C BCDFC, PTPTT, ALB, CA, CHM7, ENZ4GB, HDLT, IPB, MGO, URICB, QHCGB, HBSAB, HBSAG, A1CB, HCAB, HIV, HBCBG, EBVG, SYPHG, CMVG ####[facility] [place] [address]#### YWNVP ####Reference lab information reported with result Lymphocytes/100 leukocytes 41.8 % Normal [facility] Comment on above: Performed By: #### C BCDFC, PTPTT, ALB, CA, CHM7, ENZ4GB, HDLT, IPB, MGO, URICB, QHCGB, HBSAB, HBSAG, A1CB, HCAB, HIV, HBCBG, EBVG, SYPHG, CMVG ####[place] [address]#### YWNVP ####Reference lab information reported with result MCV 89.1 fL Normal 79.4-94.8 [facility] Comment on above: Performed By: #### C BCDFC, PTPTT, ALB, CA, CHM7, ENZ4GB, HDLT, IPB, MGO, URICB, QHCGB, HBSAB, HBSAG, A1CB, HCAB, HIV, HBCBG, EBVG, SYPHG, CMVG ####[address], [place] [address]#### YWNVP ####Reference lab information reported with result Monocytes/100 leukocytes 7.9 % Normal [facility] Comment on above: Performed By: #### C BCDFC, PTPTT, ALB, CA, CHM7, ENZ4GB, HDLT, IPB, MGO, URICB, QHCGB, HBSAB, HBSAG, A1CB, HCAB, HIV, HBCBG, EBVG, SYPHG, CMVG ####[facility] [place] [address] [place], [place] [id number] [address] [place] [address]#### YWNVP ####Reference lab information reported with result NEUTROPHIL SEGMENTED 48.5 % Normal [facility] Comment on above: Performed By: #### C BCDFC, PTPTT, ALB, CA, CHM7, ENZ4GB, HDLT, IPB, MGO, URICB, QHCGB, HBSAB, HBSAG, A1CB, HCAB, HIV, HBCBG, EBVG, SYPHG, CMVG ####[facility] [place] [address] [place] [address]#### YWNVP ####Reference lab information reported with result Nucleated erythrocytes 0.0 /100 WBC Normal 0.0-0.2 [facility] Comment on above: Performed By: #### C BCDFC, PTPTT, ALB, CA, CHM7, ENZ4GB, HDLT, IPB, MGO, URICB, QHCGB, HBSAB, HBSAG, A1CB, HCAB, HIV, HBCBG, EBVG, SYPHG, CMVG ####[facility] [place] [address] [place] [address]#### YWNVP ####Reference lab information reported with result Platelet mean volume (PMV) 9.9 fL Normal 9.4-12.3 [facility] Comment on above: Performed By: #### C BCDFC, PTPTT, ALB, CA, CHM7, ENZ4GB, HDLT, IPB, MGO, URICB, QHCGB, HBSAB, HBSAG, A1CB, HCAB, HIV, HBCBG, EBVG, SYPHG, CMVG ####[facility] [place] [address]#### YWNVP ####Reference lab information reported with result Platelets 230 10*3/uL Normal 182-369 [facility] Comment on above: Performed By: #### C BCDFC, PTPTT, ALB, CA, CHM7, ENZ4GB, HDLT, IPB, MGO, URICB, QHCGB, HBSAB, HBSAG, A1CB, HCAB, HIV, HBCBG, EBVG, SYPHG, CMVG ####[place] [address] [place] [address]#### YWNVP ####Reference lab information reported with result SEGS + Bands,Absolute 2.22 K/uL Normal 1.56-6.13 [facility] Comment on above: Performed By: #### C BCDFC, PTPTT, ALB, CA, CHM7, ENZ4GB, HDLT, IPB, MGO, URICB, QHCGB, HBSAB, HBSAG, A1CB, HCAB, HIV, HBCBG, EBVG, SYPHG, CMVG ####[place] [address]#### YWNVP ####Reference lab information reported with result WBC (Leukocytes) 4.57 10*3/uL Normal 3.98-10.04 [facility] Comment on above: Performed By: #### C BCDFC, PTPTT, ALB, CA, CHM7, ENZ4GB, HDLT, IPB, MGO, URICB, QHCGB, HBSAB, HBSAG, A1CB, HCAB, HIV, HBCBG, EBVG, SYPHG, CMVG ####[facility] [place] [address]#### YWNVP ####Reference lab information reported with result CHEM 7on 07-17-2017 Anion gap 13 mmol/L Normal 7-17 [facility] Comment on above: Performed By: #### C BCDFC, PTPTT, ALB, CA, CHM7, ENZ4GB, HDLT, IPB, MGO, URICB, QHCGB, HBSAB, HBSAG, A1CB, HCAB, HIV, HBCBG, EBVG, SYPHG, CMVG ####[place] [address] [address] [address]#### YWNVP ####Reference lab information reported with result BUN/Creatinine Ratio 22 mg/mg Normal [facility] Comment on above: Performed By: #### C BCDFC, PTPTT, ALB, CA, CHM7, ENZ4GB, HDLT, IPB, MGO, URICB, QHCGB, HBSAB, HBSAG, A1CB, HCAB, HIV, HBCBG, EBVG, SYPHG, CMVG ####[place] [address]#### YWNVP ####Reference lab information reported with result Chloride 108 mmol/L Normal 98-108 [facility] Comment on above: Performed By: #### C BCDFC, PTPTT, ALB, CA, CHM7, ENZ4GB, HDLT, IPB, MGO, URICB, QHCGB, HBSAB, HBSAG, A1CB, HCAB, HIV, HBCBG, EBVG, SYPHG, CMVG ####[facility] [place] [id number] [place], [place] [id number] [address] [place] [address]#### YWNVP ####Reference lab information reported with result CO2 24 mmol/L Normal 22-30 [facility] Comment on above: Performed By: #### C BCDFC, PTPTT, ALB, CA, CHM7, ENZ4GB, HDLT, IPB, MGO, URICB, QHCGB, HBSAB, HBSAG, A1CB, HCAB, HIV, HBCBG, EBVG, SYPHG, CMVG ####[facility] [place] [id number] [place], [place] [id number] [address] [place] [address]#### YWNVP ####Reference lab information reported with result Creatinine 0.69 mg/dL Normal 0.50-1.20 [facility] Comment on above: Performed By: #### C BCDFC, PTPTT, ALB, CA, CHM7, ENZ4GB, HDLT, IPB, MGO, URICB, QHCGB, HBSAB, HBSAG, A1CB, HCAB, HIV, HBCBG, EBVG, SYPHG, CMVG ####[facility] [place], [place] [id number] [address] [place] [address]#### YWNVP ####Reference lab information reported with result eGFR (non-black) mL/min/{1.73_m2} Normal >60 [facility] Comment on above: Performed By: #### C BCDFC, PTPTT, ALB, CA, CHM7, ENZ4GB, HDLT, IPB, MGO, URICB, QHCGB, HBSAB, HBSAG, A1CB, HCAB, HIV, HBCBG, EBVG, SYPHG, CMVG ####[facility] [place], [place] [id number] [address] [place] [address]#### YWNVP ####Reference lab information reported with result Glucose mass conc 84 mg/dL Normal 70-99 [facility] Comment on above: Performed By: #### C BCDFC, PTPTT, ALB, CA, CHM7, ENZ4GB, HDLT, IPB, MGO, URICB, QHCGB, HBSAB, HBSAG, A1CB, HCAB, HIV, HBCBG, EBVG, SYPHG, CMVG ####[facility] [place] [address] [place] [address]#### YWNVP ####Reference lab information reported with result Osmolality 294 mOsm/kg Normal 278-305 [facility] Comment on above: Performed By: #### C BCDFC, PTPTT, ALB, CA, CHM7, ENZ4GB, HDLT, IPB, MGO, URICB, QHCGB, HBSAB, HBSAG, A1CB, HCAB, HIV, HBCBG, EBVG, SYPHG, CMVG ####[facility] [place] [address] [place] [address]#### YWNVP ####Reference lab information reported with result Potassium molar conc 3.8 mmol/L Normal 3.5-5.0 [facility] Comment on above: Performed By: #### C BCDFC, PTPTT, ALB, CA, CHM7, ENZ4GB, HDLT, IPB, MGO, URICB, QHCGB, HBSAB, HBSAG, A1CB, HCAB, HIV, HBCBG, EBVG, SYPHG, CMVG ####[place] [address] [place], [place] [address] [address] [place] [address]#### YWNVP ####Reference lab information reported with result Sodium 141 mmol/L Normal 133-143 [facility] Comment on above: Performed By: #### C BCDFC, PTPTT, ALB, CA, CHM7, ENZ4GB, HDLT, IPB, MGO, URICB, QHCGB, HBSAB, HBSAG, A1CB, HCAB, HIV, HBCBG, EBVG, SYPHG, CMVG ####[facility] [place] [address] [place] [address]#### YWNVP ####Reference lab information reported with result Urea nitrogen 15 mg/dL Normal 7-22 [facility] Comment on above: Performed By: #### C BCDFC, PTPTT, ALB, CA, CHM7, ENZ4GB, HDLT, IPB, MGO, URICB, QHCGB, HBSAB, HBSAG, A1CB, HCAB, HIV, HBCBG, EBVG, SYPHG, CMVG ####[facility] [place], [place] [id number] [address] [place] [address]#### YWNVP ####Reference lab information reported with result Calciumon 07-17-2017 Calcium 9.2 mg/dL Normal 8.6-10.5 [facility] Comment on above: Performed By: #### C BCDFC, PTPTT, ALB, CA, CHM7, ENZ4GB, HDLT, IPB, MGO, URICB, QHCGB, HBSAB, HBSAG, A1CB, HCAB, HIV, HBCBG, EBVG, SYPHG, CMVG ####[facility] [place] [address]#### YWNVP ####Reference lab information reported with result EBV VCA IgG Antibodyon 07-17 EBV VCA IgG Antibody Positive Abnormal Negative [facility] Comment on above: Performed By: #### C BCDFC, PTPTT, ALB, CA, CHM7, ENZ4GB, HDLT, IPB, MGO, URICB, QHCGB, HBSAB, HBSAG, A1CB, HCAB, HIV, HBCBG, EBVG, SYPHG, CMVG ####[facility] [place] [address]#### YWNVP ####Reference lab information reported with result HIV-1/HIV-2 AB with p24 Anti genon 07-17-2017 HIV-1/HIV-2 AB with p24 Antige NONREACTIVE Normal NONREACTIVE [facility] Comment on above: Performed By: #### C BCDFC, PTPTT, ALB, CA, CHM7, ENZ4GB, HDLT, IPB, MGO, URICB, QHCGB, HBSAB, HBSAG, A1CB, HCAB, HIV, HBCBG, EBVG, SYPHG, CMVG ####[place] [address] [address] [place] [address]#### YWNVP ####Reference lab information reported with result Hemoglobin A1con 07-17-2017 Glucose mass conc 97 mg/dL Normal [facility] Comment on above: Performed By: #### C BCDFC, PTPTT, ALB, CA, CHM7, ENZ4GB, HDLT, IPB, MGO, URICB, QHCGB, HBSAB, HBSAG, A1CB, HCAB, HIV, HBCBG, EBVG, SYPHG, CMVG ####[place] [address]#### YWNVP ####Reference lab information reported with result Hemoglobin A1c/Hemoglobin.tot al mass fraction (Bld) 5.0 % Normal 4.7-5.6 [facility] Comment on above: Performed By: #### C BCDFC, PTPTT, ALB, CA, CHM7, ENZ4GB, HDLT, IPB, MGO, URICB, QHCGB, HBSAB, HBSAG, A1CB, HCAB, HIV, HBCBG, EBVG, SYPHG, CMVG ####[facility] [place], [place] [id number] [address] [place] [address]#### YWNVP ####Reference lab information reported with result Hep B Core Ab,Total (IgG+IgM )on 07-17-2017 Hep B Core Ab,Total (IgG+IgM) Negative Normal Negative [facility] Comment on above: Performed By: #### C BCDFC, PTPTT, ALB, CA, CHM7, ENZ4GB, HDLT, IPB, MGO, URICB, QHCGB, HBSAB, HBSAG, A1CB, HCAB, HIV, HBCBG, EBVG, SYPHG, CMVG ####[facility] [place] [address]#### YWNVP ####Reference lab information reported with result Hep B Surface Abon 8 Hep B Surface Ab Positive Normal [facility] Comment on above: Performed By: #### C BCDFC, PTPTT, ALB, CA, CHM7, ENZ4GB, HDLT, IPB, MGO, URICB, QHCGB, HBSAB, HBSAG, A1CB, HCAB, HIV, HBCBG, EBVG, SYPHG, CMVG ####[facility] [place] [address]#### YWNVP ####Reference lab information reported with result Hep B Surface Agon 8 Hep B Surface Ag Negative Normal Negative [facility] Comment on above: Performed By: #### C BCDFC, PTPTT, ALB, CA, CHM7, ENZ4GB, HDLT, IPB, MGO, URICB, QHCGB, HBSAB, HBSAG, A1CB, HCAB, HIV, HBCBG, EBVG, SYPHG, CMVG ####[facility] [place], [place] [id number] [address] [place] [address]#### YWNVP ####Reference lab information reported with result Hepatitis C Antibodyon 07-17 Hepatitis C Antibody Negative Normal Negative [facility] Comment on above: Performed By: #### C BCDFC, PTPTT, ALB, CA, CHM7, ENZ4GB, HDLT, IPB, MGO, URICB, QHCGB, HBSAB, HBSAG, A1CB, HCAB, HIV, HBCBG, EBVG, SYPHG, CMVG ####[facility] [place] [address]#### YWNVP ####Reference lab information reported with result Inorganic Phosphateon 2017 Inorg Phosphate 2.6 mg/dL Normal 2.2-4.6 [facility] Comment on above: Performed By: #### C BCDFC, PTPTT, ALB, CA, CHM7, ENZ4GB, HDLT, IPB, MGO, URICB, QHCGB, HBSAB, HBSAG, A1CB, HCAB, HIV, HBCBG, EBVG, SYPHG, CMVG ####[facility] [place] [address] [place] [address]#### YWNVP ####Reference lab information reported with result Lipid Profileon 07-17-2017 Calculated LDL Cholesterol 65 mg/dL Normal 0-99 [facility] Comment on above: Result Comment: [<10 0 mg/dL: Optimal] [100-129 mg/dL: Near Optimal] [130-159 mg/dL: Borderline High] [160-189 mg/dL: High] [>189 mg/dL: Very High] Performed By: #### C BCDFC, PTPTT, ALB, CA, CHM7, ENZ4GB, HDLT, IPB, MGO, URICB, QHCGB, HBSAB, HBSAG, A1CB, HCAB, HIV, HBCBG, EBVG, SYPHG, CMVG ####[facility] [place] [address], [address] [place] [address]#### YWNVP ####Reference lab information reported with result Cholesterol 140 mg/dL Normal <200 [facility] Comment on above: Result Comment: [<20 0 mg/dL: Desirable] [200-239 mg/dL: Borderline High] [>239 mg/dL: High] Performed By: #### C BCDFC, PTPTT, ALB, CA, CHM7, ENZ4GB, HDLT, IPB, MGO, URICB, QHCGB, HBSAB, HBSAG, A1CB, HCAB, HIV, HBCBG, EBVG, SYPHG, CMVG ####[facility] [place] [address], [address] [place] [address]#### YWVandanaVP ####Reference lab information reported with result Cholesterol to HDL Ratio 2.2 {ratio} Normal <4.5 [facility] Comment on above: Result Comment: [<4. 5: Low risk] Performed By: #### C BCDFC, PTPTT, ALB, CA, CHM7, ENZ4GB, HDLT, IPB, MGO, URICB, QHCGB, HBSAB, HBSAG, A1CB, HCAB, HIV, HBCBG, EBVG, SYPHG, CMVG ####[facility] [place] [address], [address] [place] [address]#### YWNVP ####Reference lab information reported with result HDL Cholesterol 65 mg/dL Normal >40.0 [facility] Comment on above: Result Comment: [<40 mg/dL: Low (High Risk)] [>59 mg/dL: High (Low Risk)] Performed By: #### C BCDFC, PTPTT, ALB, CA, CHM7, ENZ4GB, HDLT, IPB, MGO, URICB, QHCGB, HBSAB, HBSAG, A1CB, HCAB, HIV, HBCBG, EBVG, SYPHG, CMVG ####[facility] [place], [place] [id number] [address] [place] [address]#### YWNVP ####Reference lab information reported with result Non HDL Cholesterol 75 mg/dL Normal <130 [facility] Comment on above: Performed By: #### C BCDFC, PTPTT, ALB, CA, CHM7, ENZ4GB, HDLT, IPB, MGO, URICB, QHCGB, HBSAB, HBSAG, A1CB, HCAB, HIV, HBCBG, EBVG, SYPHG, CMVG ####[facility] [place], [place] [id number] [place] [address]#### YWNVP ####Reference lab information reported with result Triglyceride 49 mg/dL Normal <150 [facility] Comment on above: Result Comment: [<15 0 mg/dL: Desirable][150-199 mg/dL: Borderline][200-499 mg/dL: High][>500 mg/dL: Very High] Performed By: #### C BCDFC, PTPTT, ALB, CA, CHM7, ENZ4GB, HDLT, IPB, MGO, URICB, QHCGB, HBSAB, HBSAG, A1CB, HCAB, HIV, HBCBG, EBVG, SYPHG, CMVG ####[place] [address] [place], [place] [id number] [place] [address]#### YWNVP ####Reference lab information reported with result Magnesiumon 04-02-2018 Magnesium 1.9 mg/dL Normal 1.6-2.6 [facility] Comment on above: Performed By: #### C BCDFC, PTPTT, ALB, CA, CHM7, ENZ4GB, HDLT, IPB, MGO, URICB, QHCGB, HBSAB, HBSAG, A1CB, HCAB, HIV, HBCBG, EBVG, SYPHG, CMVG ####[facility] [place], [place] [id number] [address] [place] [address]#### YWNVP ####Reference lab information reported with result Microalbumin randomon 2017 *Microalbumin <7.0 Normal [facility] Comment on above: Performed By: #### C BCDFC, PTPTT, ALB, CA, CHM7, ENZ4GB, HDLT, IPB, MGO, URICB, QHCGB, HBSAB, HBSAG, A1CB, HCAB, HIV, HBCBG, EBVG, SYPHG, CMVG ####[facility].[address] [place] [address]#### YWNVP ####Reference lab information reported with result *Microalbumin/Crea tinine Ratio Not calculated Normal <30 [facility] Comment on above: Performed By: #### C BCDFC, PTPTT, ALB, CA, CHM7, ENZ4GB, HDLT, IPB, MGO, URICB, QHCGB, HBSAB, HBSAG, A1CB, HCAB, HIV, HBCBG, EBVG, SYPHG, CMVG ####[facility] [place] [address]#### YWNVP ####Reference lab information reported with result Creatinine, urine mg/dL 21.00 mg/dL Normal [facility] Comment on above: Performed By: #### C BCDFC, PTPTT, ALB, CA, CHM7, ENZ4GB, HDLT, IPB, MGO, URICB, QHCGB, HBSAB, HBSAG, A1CB, HCAB, HIV, HBCBG, EBVG, SYPHG, CMVG ####[facility] [place], [place] [id number] [address] [place] [address]#### YWNVP ####Reference lab information reported with result PT*PTTon 07-17-2017 INR Coag RelTime (PPP) 1.0 {INR} Normal 0.9-1.1 [facility] Comment on above: Performed By: #### C BCDFC, PTPTT, ALB, CA, CHM7, ENZ4GB, HDLT, IPB, MGO, URICB, QHCGB, HBSAB, HBSAG, A1CB, HCAB, HIV, HBCBG, EBVG, SYPHG, CMVG ####[facility] [place], [place] [address] [address] [place] [address]#### YWNVP ####Reference lab information reported with result Prothrombin time (PT) Coag time (PPP) 13.2 s Normal 11.9-14.2 [facility] Comment on above: Performed By: #### C BCDFC, PTPTT, ALB, CA, CHM7, ENZ4GB, HDLT, IPB, MGO, URICB, QHCGB, HBSAB, HBSAG, A1CB, HCAB, HIV, HBCBG, EBVG, SYPHG, CMVG ####[place] [address] [place] [address] [place] [address]#### YWNVP ####Reference lab information reported with result aPTT 27.1 s Normal 24.0-34.3 [facility] Comment on above: Performed By: #### C BCDFC, PTPTT, ALB, CA, CHM7, ENZ4GB, HDLT, IPB, MGO, URICB, QHCGB, HBSAB, HBSAG, A1CB, HCAB, HIV, HBCBG, EBVG, SYPHG, CMVG ####[facility] [place], [place] [address]QgqrefAcmc Healthcare System[address] [place] [address]#### YWNVP ####Reference lab information reported with result Quant Beta HCG (Preg), serum on 07-17-2017 Quant Beta HCG (),ser <2 Normal [facility] Comment on above: Result Comment: Non- [...] A1CB, HCAB, HIV, HBCBG, EBVG, SYPHG, CMVG ####[facility] [place] [address] [place] [address] [place] [address]#### YWNVP ####Reference lab information reported with result Syphilis IgG AB with Reflex RPRon 07-17-2017 Syphilis IgG AB with Reflex RP Negative Normal Negative [facility] Comment on above: Performed By: #### C BCDFC, PTPTT, ALB, CA, CHM7, ENZ4GB, HDLT, IPB, MGO, URICB, QHCGB, HBSAB, HBSAG, A1CB, HCAB, HIV, HBCBG, EBVG, SYPHG, CMVG ####[place] [address] [place] [address]#### YWNVP ####Reference lab information reported with result Type and Screen - OPon 07-17 Type and Screen - OP Negative Normal [facility] Comment on above: Performed By: #### C BCDFC, PTPTT, ALB, CA, CHM7, ENZ4GB, HDLT, IPB, MGO, URICB, QHCGB, HBSAB, HBSAG, A1CB, HCAB, HIV, HBCBG, EBVG, SYPHG, CMVG ####[place] [address] [address] [address]#### YWNVP ####Reference lab information reported with result URIC ACIDon 07-17-2017 Urate 2.7 mg/dL Low 2.8-6.0 [facility] Comment on above: Performed By: #### C BCDFC, PTPTT, ALB, CA, CHM7, ENZ4GB, HDLT, IPB, MGO, URICB, QHCGB, HBSAB, HBSAG, A1CB, HCAB, HIV, HBCBG, EBVG, SYPHG, CMVG ####[place] [address]#### YWNVP ####Reference lab information reported with result Urinalysison 07-17-2017 Blood Urine Negative Normal Negative [facility] Comment on above: Performed By: #### C BCDFC, PTPTT, ALB, CA, CHM7, ENZ4GB, HDLT, IPB, MGO, URICB, QHCGB, HBSAB, HBSAG, A1CB, HCAB, HIV, HBCBG, EBVG, SYPHG, CMVG ####[facility] [place] [address]NhwibvAcmc Healthcare System[address] [place], [place] [address]#### YWNVP ####Reference lab information reported with result COMMENT URINE None Normal [facility] Comment on above: Performed By: #### C BCDFC, PTPTT, ALB, CA, CHM7, ENZ4GB, HDLT, IPB, MGO, URICB, QHCGB, HBSAB, HBSAG, A1CB, HCAB, HIV, HBCBG, EBVG, SYPHG, CMVG ####[facility] [place] [address] [place], [place] [id number] [address] [place] [address]#### YWNVP ####Reference lab information reported with result Nitrites Urine Negative Normal Negative [facility] Comment on above: Performed By: #### C BCDFC, PTPTT, ALB, CA, CHM7, ENZ4GB, HDLT, IPB, MGO, URICB, QHCGB, HBSAB, HBSAG, A1CB, HCAB, HIV, HBCBG, EBVG, SYPHG, CMVG ####[facility] [place], [place] [address] [address] [place] [address]#### YWNVP ####Reference lab information reported with result Protein Urine Negative Normal Negative [facility] Comment on above: Performed By: #### C BCDFC, PTPTT, ALB, CA, CHM7, ENZ4GB, HDLT, IPB, MGO, URICB, QHCGB, HBSAB, HBSAG, A1CB, HCAB, HIV, HBCBG, EBVG, SYPHG, CMVG ####[facility] [place], [place] [address] [address] [place] [address]#### YWNVP ####Reference lab information reported with result Specific [place] urine 1.008 Normal 1.001-1.035 [facility] Comment on above: Performed By: #### C BCDFC, PTPTT, ALB, CA, CHM7, ENZ4GB, HDLT, IPB, MGO, URICB, QHCGB, HBSAB, HBSAG, A1CB, HCAB, HIV, HBCBG, EBVG, SYPHG, CMVG ####[facility] [place] [address], [address] [place] [address]#### YWNVP ####Reference lab information reported with result Squamous Epithelial Absent Normal [facility] Comment on above: Performed By: #### C BCDFC, PTPTT, ALB, CA, CHM7, ENZ4GB, HDLT, IPB, MGO, URICB, QHCGB, HBSAB, HBSAG, A1CB, HCAB, HIV, HBCBG, EBVG, SYPHG, CMVG ####[facility] [place] [address]#### YWNVP ####Reference lab information reported with result Urine, appearance Clear Normal Clear [facility] Comment on above: Performed By: #### C BCDFC, PTPTT, ALB, CA, CHM7, ENZ4GB, HDLT, IPB, MGO, URICB, QHCGB, HBSAB, HBSAG, A1CB, HCAB, HIV, HBCBG, EBVG, SYPHG, CMVG ####[facility] [place] [address]#### YWNVP ####Reference lab information reported with result Urine, bacteria in sediment Absent Normal Absent [facility] Comment on above: Performed By: #### C BCDFC, PTPTT, ALB, CA, CHM7, ENZ4GB, HDLT, IPB, MGO, URICB, QHCGB, HBSAB, HBSAG, A1CB, HCAB, HIV, HBCBG, EBVG, SYPHG, CMVG ####[facility] [place], [place] [address] [place] [address]#### YWNVP ####Reference lab information reported with result Urine, color Yellow Normal YEL,DKYEL [facility] Comment on above: Performed By: #### C BCDFC, PTPTT, ALB, CA, CHM7, ENZ4GB, HDLT, IPB, MGO, URICB, QHCGB, HBSAB, HBSAG, A1CB, HCAB, HIV, HBCBG, EBVG, SYPHG, CMVG ####[facility] [place] [address] [place] [address]#### YWNVP ####Reference lab information reported with result Urine, erythrocytes in sediment by area 0-2 Normal 0-2 [facility] Comment on above: Performed By: #### C BCDFC, PTPTT, ALB, CA, CHM7, ENZ4GB, HDLT, IPB, MGO, URICB, QHCGB, HBSAB, HBSAG, A1CB, HCAB, HIV, HBCBG, EBVG, SYPHG, CMVG ####[place] [address] [place] [address] [place] [address]#### YWNVP ####Reference lab information reported with result Urine, glucose presence Negative Normal Negative [facility] Comment on above: Performed By: #### C BCDFC, PTPTT, ALB, CA, CHM7, ENZ4GB, HDLT, IPB, MGO, URICB, QHCGB, HBSAB, HBSAG, A1CB, HCAB, HIV, HBCBG, EBVG, SYPHG, CMVG ####[facility] [place], [place] [address] [address] [place] [address]#### YWNVP ####Reference lab information reported with result Urine, ketones presence Negative Normal Negative [facility] Comment on above: Performed By: #### C BCDFC, PTPTT, ALB, CA, CHM7, ENZ4GB, HDLT, IPB, MGO, URICB, QHCGB, HBSAB, HBSAG, A1CB, HCAB, HIV, HBCBG, EBVG, SYPHG, CMVG ####[facility] [place], [place] [address] [address] [place] [address]#### YWNVP ####Reference lab information reported with result Urine, leukocyte esterase presence Negative Normal Negative [facility] Comment on above: Performed By: #### C BCDFC, PTPTT, ALB, CA, CHM7, ENZ4GB, HDLT, IPB, MGO, URICB, QHCGB, HBSAB, HBSAG, A1CB, HCAB, HIV, HBCBG, EBVG, SYPHG, CMVG ####[facility] [place], [place] [address] [address] [place] [address]#### YWNVP ####Reference lab information reported with result Urine, leukocytes in sedmiment 0-5 Normal 0-5 [facility] Comment on above: Performed By: #### C BCDFC, PTPTT, ALB, CA, CHM7, ENZ4GB, HDLT, IPB, MGO, URICB, QHCGB, HBSAB, HBSAG, A1CB, HCAB, HIV, HBCBG, EBVG, SYPHG, CMVG ####[facility] [place], [place] [address] [address] [place] [address]#### YWNVP ####Reference lab information reported with result Urine, pH 6.5 [pH] Normal 5.0-7.0 [facility] Comment on above: Performed By: #### C BCDFC, PTPTT, ALB, CA, CHM7, ENZ4GB, HDLT, IPB, MGO, URICB, QHCGB, HBSAB, HBSAG, A1CB, HCAB, HIV, HBCBG, EBVG, SYPHG, CMVG ####[place] [address] [place] [address], [place] [address]#### YWNVP ####Reference lab information reported with result Urobilinogen urine 0.2 EU/dL Normal <2.0 [facility] Comment on above: Performed By: #### C BCDFC, PTPTT, ALB, CA, CHM7, ENZ4GB, HDLT, IPB, MGO, URICB, QHCGB, HBSAB, HBSAG, A1CB, HCAB, HIV, HBCBG, EBVG, SYPHG, CMVG ####[place] [address] [place] [address]#### YWNVP ####Reference lab information reported with result [...] Normal, without PVHIMPRESSION:No acute cardiopulmonary disease Normal [facility] HLA TYPINGon 05-31-2017 *COMMENT: Normal [facility] Comment on above: Result Comment: Test [...] need for FDA approval.Testing performed by the [facility] Clinical Histocompatibility Laboratory. [facility] number: [id number]. CLIA number: [id number], Director: Caleb Torres, PhD, D([facility]). Performed By: #### H LAB ####[place] [address] Bw4 Negative [facility] Comment on above: Performed By: #### H LAB ####[place] [address] [address] [address] Bw6 Positive [facility] Comment on above: Performed By: #### H LAB ####[place] [address], [address] [place] [address] DPB1* 04:01 [facility] Comment on above: Performed By: #### H LAB ####[place] [address] [address] [address] [place] [address] DPB1* 01:01 [facility] Comment on above: Performed By: #### H LAB ####[address], [address] [place], [place] [address] DQA1* xxx Normal [facility] Comment on above: Performed By: #### H LAB ####[facility] [place], [place] [address]JiiylgAcmc Healthcare System[address] [place], [place] [address] DQA1* 05 Normal [facility] Comment on above: Performed By: #### H LAB ####[facility] [place], [place] [address]RpzarvAcmc Healthcare System[address] [place] [address] DQB1 2 Normal [facility] Comment on above: Performed By: #### H LAB ####[facility] [place], [place] [address]OdhhbiAcmc Healthcare System[address] [place] [address] DQB1* xxx Normal [facility] Comment on above: Performed By: #### H LAB ####[facility] [place] [address]UbkngqAcmc Healthcare System[address] [place] [address] DQB1* 02 Normal [facility] Comment on above: Performed By: #### H LAB ####[facility] [place] [address]RiphdcAcmc Healthcare System[address] [place] [address] 17 Normal [facility] Comment on above: Performed By: #### H LAB ####[facility] [place] [address]HfmvhrAcmc Healthcare System[address] [place] [address] DR51 Negative Normal [facility] Comment on above: Performed By: #### H LAB ####[facility] [place], [place] [address]WmklfjAcmc Healthcare System[address] [place] [address] [address] DR52 Positive Normal [facility] Comment on above: Performed By: #### H LAB ####[facility] [facility] [address]MvzlmpAcmc Healthcare System[address] [place] [address] [address]53 Negative Normal [facility] Comment on above: Performed By: #### H LAB ####[facility] [facility] [address]MlnotmAcmc Healthcare System[address] [place] [address] DRB1* 03 Normal [facility] Comment on above: Performed By: #### H LAB ####[facility] [facility] [address]WoknmsAcmc Healthcare System[address] [place] [address] DRB1* xxx Normal [facility] Comment on above: Performed By: #### H LAB ####[facility] [place], [place] [address]CbeundAcmc Healthcare System[address] [place] [address] DRB3* 01 Normal [facility] Comment on above: Performed By: #### H LAB ####[facility] [place], [place] [address]GuojjsAcmc Healthcare System[address] [place] [address] DRB4* Negative Normal [facility] Comment on above: Performed By: #### H LAB ####[facility] [place] [address], [place] [address]MebkvnAcmc Healthcare System[address] [place] [address] DRB5* Negative Normal [facility] Comment on above: Performed By: #### H LAB ####[facility] [place] [address]CftrjcAcmc Healthcare System[address] [place] [address] HLA A* 24 Normal [facility] Comment on above: Performed By: #### H LAB ####[facility] [place] [address], [place] [address]EqisbpAcmc Healthcare System[address] [place] [address] HLA A* 02 Normal [facility] Comment on above: Performed By: #### H LAB ####[facility] [facility], [place] [address]IbushhAcmc Healthcare System[address] [place] [address] HLA B* 56 Normal [facility] Comment on above: Performed By: #### H LAB ####[facility] [place] [address], [place] [address]FrxuuiAcmc Healthcare System[address] [place] [address] HLA B* 08 Normal [facility] Comment on above: Performed By: #### H LAB ####[facility] [place] [address], [place] [address]IzwznzAcmc Healthcare System[address] [place] [address] HLA C* 07 Normal [facility] Comment on above: Performed By: #### H LAB ####[facility] [place] [address], [place] [address]ZpbcfgAcmc Healthcare System[address] [place] [address] HLA C* 01 Normal [facility] Comment on above: Performed By: #### H LAB ####[facility] [place] [address], [place] [address]GrwvslAcmc Healthcare System[address] [place] [address] 10353 HLA interpretation SEE NOTES Normal [facility] Comment on above: Result Comment: (NOT E)LISTED AMBIGUITIES ARE NOT EXCLUDED:DPB1*04:XX3 DPB1*498:01DPB1*04:XX3 DPB1*572:01DPB1*14:01 DPB1*459:01DPB1*14:01 DPB1*464:01DPB1*14:01 DPB1*534:01DPB1*14:01 DPB1*615:01DPB1*14:01 DPB1*618:01DPB1*350:01 DPB1*651:01DPB1*459:01 DPB1*498:01DPB1*459:01 DPB1*572:01DPB1*464:01 DPB1*498:01DPB1*464:01 DPB1*572:01DPB1*498:01 DPB1*534:01DPB1*498:01 DPB1*615:01DPB1*498:01 DPB1*618:01DPB1*534:01 DPB1*572:01DPB1*572:01 DPB1*615:01DPB1*572:01 DPB1*618:01DPB1*XX3:=:04:01/04:01N Performed By: #### H LAB ####[place] [address] B 8,56 Normal [facility] Comment on above: Performed By: #### H LAB ####[place] [address] C 1,7 [facility] Comment on above: Performed By: #### H LAB ####[place] [address] A 2,24 [facility] Comment on above: Performed By: #### H LAB ####[place] [address] Vital Signs Date Time Vital Sign Value Performing Clinician Facility 06-05-2024 16:07-0500 Body weight 68.55 kg Myke Caceres [employer] Work Phone: [facility] 06-05-2024 16:07-0500 Diastolic blood pressure 72 mm[Hg] Myke Nicki DO Work Phone: [facility] 06-05-2024 16:07-0500 Systolic blood pressure 110 mm[Hg] Myke Nicki DO Work Phone: [facility] 04-01-2022 12:00-0500 Body height 167.64 cm Thais Guadarrama Other [employer] Other 04-01-2022 12:00-0500 Body mass index (BMI) [Ratio] 23.4 kg/m2 Thais Guadarrama Other [employer] Other 04-01-2022 12:00-0500 Body temperature 98.7 [degF] Thais Guadarrama Other [employer] Other 04-01-2022 12:00-0500 Body weight 65.77 kg Thais Guadarrama Other [employer] Other 04-01-2022 12:00-0500 Diastolic blood pressure 63 mm[Hg] Thais Guadarrama Other [employer] Other 04-01-2022 12:00-0500 Respiratory rate 18 /min Thais Guadarrama Other [employer] Other 04-01-2022 12:00-0500 SaO2% (BldA) [Mass fraction] 98 % Thais Guadarrama Other [employer] Other 04-01-2022 12:00-0500 Systolic blood pressure 102 mm[Hg] Thais Guadarrama Other [employer] Other Encounters Encounter Date Encounter Type Care Provider Facility Start: 06-05-2024 End: 06-05-2024 ambulatory MYKE NICKI Not Available Start: 06-05-2024 End: 06-05-2024 Patient encounter procedure Myke Nicki DO Work Phone: [facility] Start: 06-05-2024 End: 06-05-2024 Periodic preventive med est patient 40-64yrs Myke Nicki DO Work Phone: [facility] Comment on above: Well woman exam with routine gynecological exam; Encounter for screening mammogram for malignant neoplasm of breast; Yeast infection Start: 06-05-2024 End: 06-05-2024 Bamboo flowsheet Myke Nicki DO Work Phone: [facility] Start: 06-05-2024 End: 06-10-2024 Bamboo flowsheet Myke Nicki DO Work Phone: [facility] Start: 06-05-2024 End: 06-10-2024 Clinisync Result Encounter Myke Nicki DO Work Phone: [facility] Unsolicited Start: 04-01-2022 End: 04-01-2022 ambulatory Thais Guadarrama Other [employer] Other Start: 04-01-2022 Office outpatient ne w 20 minutes Thais Guadarrama [facility] Start: 01-18-2022 End: 01-19-[address] EDUARDO BRIDGES Facility:[facility] Start: 12-02-2021 End: 12-03-[address] DANITZA PULIDO Facility:[facility] Start: 11-10-2021 End: 11-10-[address] DANITZA PULIDO Facility:[facility] Start: 07-17-2017 Ambulatory JENNIE WAN [facility] Start: 07-17-2017 Ambulatory HUMBLE VALDIVIA [facility] Procedures Date Procedure Procedure Detail Performing Clinician Start: 06-05-2024 IGP,APTIMA HPV,AGE GDLN Myke Nicki DO Work Phone: Start: 09-28-2016 Microscopic observat ion [Identifier] in Cervix by Cyto stain Myke Nicki DO Work Phone: Plan of Treatment Date Care Activity Detail Author Start: 06-18-2025 End: 06-18-2025 Patient encounter procedure 06/18/2025 4:00 PM EST Office Visit [facility] [address] [place] [address] Myke Caceres, DO [address] [place] [address] [facility] Start: 06-05-2024 End: 08-03-2025 MG Breast - bilateral Screening Bilateral screening mammogram Imaging Routine Encounter for screening mammogram for malignant neoplasm of breast Expected: 06/05/2024 (Approximate), Expires: 08/03/2025 [facility] Work Phone: Comment on above: Expected: 06/05/2024 (Approximate), Expires: 08/03/2025 Start: 12-17-2023 Influenza vaccination Influenza Vacc ine (#1) [facility] Start: 2019 Screening for malignant neoplasm of breast Mammogram [facility] Start: 09-29-2019 Screening for malignant neoplasm of cervix [facility] Start: 11-11-2009 Screening for malignant neoplasm of cervix [facility] Start: 11-11-2000 Screening for malignant neoplasm of cervix Pap Smear [facility] THIN PREP TIS PAP AN D HR HPV DNA THIN PREP TIS PAP AND HR HPV DNA Pathology and Cytology Routine Well woman exam with routine gynecological exam Ordered: 06/05/2024 [facility] Comment on above: Ordered: 06/05/2024 Immunizations Immunization Date Immunization Notes Care Provider Fa cili 02-13-2024 influenza virus vacc ine, unspecified formulation Myke Caceres DO Work Phone: [facility] Payers Date P[facility] Category [id number] 2022 Unknown [id number] 1979 Unknown [id number] 1979 Unknown [id number] 1979 Unknown [id number] 1959 Unknown [id number] 1959 Unknown [id number] Unknown [id number] Social History Date Type Detail Facility Unknown if ever smoked [employer] Other Sex Assigned At [employer] Other Tobacco smoking status LAIS Tobacco smoking consumption unknown [facility] Start: 1980 Sex assigned at Not on file [facility] History of Present illness Narrative 06-05-2024 Klaudia Chung LPN - 06/05/2024 3:40 PM EST Note Date & Type Note Facility 06-05-2024 History of Presen t illness Narrative Reason for Appointment: Patient ID: Sonia Gruber is a 43 y.o. female who presents for Well Women Visit Patient presents today for Annual Exam. MEDICATIONS No current outpatient medications ALLERGIES No Known Allergies PROBLEMS Active Ambulatory Problems Diagnosis Date Noted No Active Ambulatory Problems Resolved Ambulatory Problems Diagnosis Date Noted No Resolved Ambulatory Problems No Additional Past Medical History HISTORY PAST MEDICAL HISTORY SOCIAL HISTORY History reviewed. No pertinent past medical history. Social History Tobacco Use Smoking status: Not on file Smokeless tobacco: Not on file Substance Use Topics Alcohol use: Not on file Drug use: Not on file FAMILY HISTORY No family history on file. SURGICAL HISTORY Past Surgical History: Procedure Laterality Date CT ANGIOGRAM PELVIS 07/17/2017 CT ANGIOGRAM PELVIS 07/17/2017 REVIEW OF SYSTEMS Review of Systems: Review of Systems Constitutional: Negative. HENT: Negative. Eyes: Negative. Respiratory: Negative. Cardiovascular: Negative. Gastrointestinal: Negative. Genitourinary: Negative. Musculoskeletal: Negative. Skin: Negative. Neurological: Negative. All other systems reviewed and are negative. Hematological: Negative. Endocrine: Negative. Allergic/Immunologic: Negative. OBJECTIVE Objective: Physical Exam Constitutional: Appearance: Normal appearance. She is well-developed. Genitourinary: Vulva normal. Breasts: Breasts are soft. Right: Normal. Left: Normal. Cardiovascular: Rate and Rhythm: Normal rate and regular rhythm. Pulmonary: Effort: Pulmonary effort is normal. Breath sounds: Normal breath sounds. Abdominal: General: Bowel sounds are normal. There is no distension. Palpations: Abdomen is soft. Tenderness: There is no abdominal tenderness. There is no guarding or rebound. Musculoskeletal: General: No swelling. Normal range of motion. Right lower leg: No edema. Left lower leg: No edema. Neurological: Mental Status: She is alert and oriented to person, place, and time. Skin: General: Skin is warm and dry. Psychiatric: Mood and Affect: Mood normal. Behavior: Behavior normal. Vitals and nursing note reviewed. Exam conducted with a biological inspector present. Vitals: There is no height or weight on file to calculate BMI. BP: 110/72 No LMP recorded. ASSESSMENT & PLAN ICD-10-CM 1. Well woman exam with routine gynecological exam Z01.419 THIN PREP TIS PAP AND HR HPV DNA 2. Encounter for screening mammogram for malignant neoplasm of breast Z12.31 Bilateral screening mammogram Bilateral screening mammogram Annual: Patient presents today for an annual exam. Patient states she is doing well and has no complaints. Pap was obtained without difficulty and patient given mammogram order to have scheduled/obtained. Orders Placed This Encounter Procedures Bilateral screening mammogram Follow Up: Patient is to return in one year for annual unless needed otherwise. Documented by Klaudia Chung LPN on behalf of: Myke Caceres DO documented in this encounter [facility] Evaluation note 04-01-2022 Note Date & Type [...] no improvement in 2 to 3 days. [employer] Other Evaluation note Note Date & Type Note Facility Evaluation note Diagnosis Well woman exam with routine gynecological exam Routine gynecological examination Encounter for screening mammogram for malignant neoplasm of breast Yeast infection documented in this encounter [facility] Healthcare Summary Purpose Family History No Family History Records FoundNo Family History Records FoundNo Family History Records Found Advance Directives No Advanced Directives Records FoundNo Advanced Directives Records FoundNo Advanced Directives Records Found Additional Source Comments INFORMATION SOURCE (unrecogn ized section and content) DATE CREATED AUTHOR 10/05/2017 [facility] DATE CREATED AUTHOR AUTHOR'S ORGANIZ ATION [facility]2022 [facility] DATE CREATED AUTHOR AUTHOR'S ORGANIZ ATION 06/07/2024 [facility] dical Specialists EPIC REASON FOR VISIT (unrecogniz ed section and content) Reason Comments Well Women Visit Care Teams (unrecognized sec tion and content) [employer] Relationship Specialty Start Date End Date Danitza Pulido MD [address] [place] [id number] PCP - General Family Medicine 06/05/24 [employer] Relationship Specialty Start Date End Date Danitza Pulido MD [address] [place] [phone] PCP - General Family Medicine 06/05/24 [employer] Relationship Specialty Start Date End Date Danitza Pulido MD [address] [place] [address] PCP - General Family Medicine 06/05/24 FOR RECORDS PERTAINING TO PATIENTS WHO ARE [...] BE BASED ON THE PRIMARY CLINICAL RECORDS. [facility] [employer] [facility]. provides no warranty or guarantee of the accuracy or completeness of information in this document.
== END 2024-10-10 09:52 | disposition home or self-care (01) ==
LOC: MAMMO 09:51
PROVIDERS: PCP Family Medicine; Visit Provider Obstetrics & Gynecology
DX: Z12.31 Encounter for screening mammogram for malignant neoplasm of breast (principal)
CPT/HCPCS: 77063; 77067

== ENCOUNTER 2025-01-16 07:08 | Outpatient (OUT) | payer BC, SELFPAY ==
--- OUTSIDE RECORDS SUMMARY | 2024-11-13 07:47 | XMS_ITS ---
Author Name Auto Generated Organization OHIP Care Team Providers Care Warehouse Order Filler Name Role Phone MYKE BYRNES Attending Unavailable Kev Lopez Attending Unavailable Kev Lopez Admitting Unavailable Danitza Beck Primary Care Unavailable PROBLEMS DATE TYPE CONDITION / CODE ATTENDING STATUS LEONIE RCE 11/13/2024 Unknown Encounter for screening for malignant neoplasm of colon / Z12.11(ICD-10) Kev Lopez Active [facility] PROCEDURES No Procedure Records Found RESULTS HCG,URINE Collected: 11/13/2024 7:52 AM Status: F Source: [facility] TYPE CODE TESTS RESULT OUT OF RANGE REFERENCE UNITS LAB UHCGQ HCG Qualitative,U rine Negative Result Comment: PERFORMED BY : [place] [address] PATHOLOGIST [employer] OR TRAP RUFUS SAWYER M.D. Performed By: #### [facility] #### [address] ALLERGIES DATE TYPE / CODE NAME / CODE REACTION SEVERITY SOURCE 11/13/2024 Drug Allergy/[id number] (SNOMED CT) No Known Allergies/[id number](RXNORM) Unknown [facility] ENCOUNTERS ADMIT/DISCHARGE ACCOUNT NUMBER ADMITTING ENCOUNTER CLASS LOCATION SOURCE 11/13/2024/11/14/19 25 [id number] Kev Lopez [facility] 06/05/2024/06/05/19 [id number] Ambulatory Building:[facility] EPIC PAYERS ENCOUNTER GUARANTOR PAYER SUBSCRIBER SOURCE 11/13/2024 [address] [place] [address]Tel: () Primary Insurance:Duong HERNANDEZ/BSPolicy Number: [id number] madyson Date:2024-10-09 Tae Green: [id number] [place] [address]Tel: (HP) [facility] 11/13/2024 Secondary Insurance:Self PayPolicy Number: Effective Date:2024-10-09 NOT GIVENUNK [facility] 06/05/2024 SONIA GREEN: [id number] [place] [phone]: (HP) (WP) Primary Insurance:Elisei cy Number: [id number] madyson Date:2022-04-17 TAE GREEN: [id number] [place] [id number] [place] [address] Medical [facility] EPIC
[2025-01-16 07:27] LABS: Hematocrit 39.8 % (36.0-48.0); Hemoglobin 13.3 g/dL (12.0-16.0); Immature Granulocytes Abs Auto 0.00 10^3/uL (0.00-0.03); Immature Granulocytes Pct Auto 0.0 % (0.0-0.5); Lymphocytes Absolute Auto 2.0 10^3/uL (1.2-3.8); Mean Corpuscular HGB Conc 33.4 g/dL (29.9-35.2); Mean Corpuscular Hemoglobin 28.8 pg (26.7-34.0); Mean Corpuscular Volume 86.1 fL (81.0-99.0); Platelet Count 235 10^3/uL (150-450); Red Blood Count 4.62 10^6/uL (4.20-5.40); White Blood Count 4.3 10^3/uL (4.0-11.0)
== END 2025-01-16 07:09 | disposition home or self-care (01) ==
LOC: LAB 07:09
PROVIDERS: PCP Family Medicine; Visit Provider Family Medicine
DX: D72.819 Decreased white blood cell count, unspecified (principal); R17 Unspecified jaundice
CPT/HCPCS: 36415; 82247; 85025